=== PATIENT | male | born 1980 | race Caucasian/White ===

== ENCOUNTER 2020-02-24 07:37 | Outpatient (CLI) | payer OTHER, SELFPAY ==
--- NOTE | ~2020-02-24 | US_ITS ---
US right upper quadrant INDICATION: Gastroesophageal reflux disease. Esophagitis. PROCEDURE: Realtime right upper abdominal ultrasound. COMPARISON: Ultrasound dated 12/04/2013 FINDINGS: The pancreas is normal without focal mass or pancreatic ductal dilation. Liver echotexture is increased, consistent with fatty infiltration. There is normal directional flow in the portal ve in. The gallbladder is normal without stones, gallbladder wall thickening or pericholecystic fluid. Comm on bile duct measures 4 mm. No sonographic Olsen's sign. IMPRESSION: 1: Fatty infiltration of the liver. Reviewed, dictated and finalized at location A.
== END 2020-02-24 07:38 | disposition home or self-care (01) ==
LOC: ANHIMG 07:41
PROVIDERS: PCP Nurse Practitioner Family; Visit Provider Nurse Practitioner Family
DX: K21.9 Gastro-esophageal reflux disease without esophagitis (principal); K76.0 Fatty (change of) liver, not elsewhere classified
CPT/HCPCS: 76705

== ENCOUNTER 2020-06-05 01:35 | Outpatient (CLI) | payer OTHER, SELFPAY ==
[2020-06-05 17:56] LABS: SARS-CoV-2 RNA PCR Negative
== END 2020-06-05 01:36 | disposition home or self-care (01) ==
LOC: ANHCOVIDDT 01:35
PROVIDERS: PCP Nurse Practitioner Family; Visit Provider Internal Medicine Gastroenterology
DX: Z01.812 Encounter for preprocedural laboratory examination (principal); Z11.59 Encounter for screening for other viral diseases
CPT/HCPCS: 87635; C9803; U0003

== ENCOUNTER 2020-06-07 02:42 | Day surgery (SDC) | payer OTHER, SELFPAY ==
[2020-06-01 15:29] VITALS: BMI 31.1
[2020-06-07] MEDS: LACTATED RINGERS 1,000 ML 150 ML IV CONT (10:34)
[2020-06-07 10:44] VITALS: BP 107/63; PULSE 66; RESP 16; TEMP 36.6; O2SAT 98
--- NOTE | 2020-06-07 10:49 | WPDANESEPPF ---
Anes - Initial Pre Proc Eval Procedure: Operation Date: 06/07/20 11:00 Proposed Procedures p Esophagogastroduodenoscopy - Marcus Mae DO Date/Time: 06/07/20 10:49 Surgeon: Marcus Mae DO Pre Op Diagnosis: Gerd Patient Data Age: 40 Gender: M Height: 6 ft 2 in Weight: 111.4 kg Last Vital Signs Temp 97.9 F 06/07/20 10:44 Pulse 66 06/07/20 10:44 Resp 16 06/07/20 10:44 BP 107/63 06/07/20 10:44 Pulse Ox 98 06/07/20 10:44 Allergies Allergy/AdvReac Type Severity Reaction Status Date / Time Penicillins Allergy Severe TACHYCARDIA Verified 06/01/20 15:25 Sulfa (Sulfonamide Allergy Severe TACHYCARDIA Verified 06/01/20 15:25 Antibiotics) clarithromycin Allergy Unknown TACHYCARDIA Verified 06/01/20 15:25 doxycycline Allergy Unknown TACHYCARDIA Verified 06/01/20 15:25 Home Medications Medication Instructions Recorded Confirmed Type albuterol sulfate 1 puff INHALATION DAILY 06/01/20 06/07/20 History famotidine 40 mg PO BID 06/01/20 06/07/20 History mometasone-formoterol [Dulera] 1 puff INHALATION DAILY 06/01/20 06/07/20 History pantoprazole 40 mg PO BID 06/01/20 06/07/20 History Patient hx anesthesia problems: none Family hx anesthesia problems: none PMFSH Past Medical History Medical History (Updated 06/07/20 @ 10:49 by Palomo Gonzáles MD) GERD (gastroesophageal reflux disease) TAYLOR (obstructive sleep apnea) Social History Social History (Updated 10/10/19 @ 16:10 by VICKY Tabor) Alcohol intake: never Substance use: never Gender identity (if verbalized by the patient): Male Anes - Eval Final PreProcedure Day of Procedure 06/07/20 10:49 Patient weight: overweight Heart: regular rate and rhythm Lungs: clear to auscultation Airway: Mallampati scale class II Neurological: alert and oriented Last oral intake: >/= 8 hours ASA classification: II Emergent: no Anesthetic plan: proceed Anesthesia type and monitoring: general GIVS and standard monitoring Informed Consent: The patient's anesthetic plan and its attendant risks and benefits were discussed with the patient/family/POA. Questions were solicited and answers provided to the satisfaction of the patient/family/POA.
[2020-06-07] MEDS: BENZOCAINE (*SP) 60 ML SPRAY CAN (HURRICAINE) 1 SPRAY MUCOUS MEM (11:44)
[2020-06-07 11:55] VITALS: BP 100/62; PULSE 66; RESP 22; O2SAT 100
[2020-06-07 12:05] VITALS: BP 95/60; PULSE 59; RESP 18; O2SAT 97
[2020-06-07 12:15] VITALS: BP 103/67; PULSE 66; RESP 18; O2SAT 97
--- NOTE | 2020-07-12 07:21 | PM.IMHP ---
H&P: HPI History of Present Illness Date/Time: 07/12/20 07:21 Chief complaint: Gerd Narrative: Reason for visit EGD. This very pleasant gentleman is being evaluated at the request of the primary physician. Impression: The we have a gentleman that is complaining of a bad taste in his mouth. This may be sicker lying reflux disease. The patient is here for EGD. Note: This report was dictated from memory. This was done the best comprehension. Recommendation: EGD. History: Patient is being evaluated for a bad taste in his mouth. He is here for endoscopic evaluation to assess for lying reflux esophagitis. Nausea, vomiting hematemesis Were denied. Physical examination: General: very pleasant patient in no acute distress. HEENT: Head was normocephalic sclerae is clear mouth without masses neck was supple. Heart: Rate rhythm regular without S3 or S4. Lungs: CTA. Abdomen: Soft with no guarding or rigidity. Bowel sounds were active. Neurologic: Cranial nerves 2 through 12 intact. No focal defects. No clonus. Musculoskeletal system: Revealed no joint tenderness or swelling no muscle atrophy. Extremities: Reveal no significant edema. Skin: Warm and dry with normal turgor. Mental status: intact. Patient is alert and oriented. Review of Systems Review of Systems: All systems reviewed & are unremarkable except as noted in HPI and below PMFSH Past Medical History Medical History (Updated 06/07/20 @ 11:53 by Marcus Mae DO) Eosinophilic esophagitis GERD overlap. GERD (gastroesophageal reflux disease) TAYLOR (obstructive sleep apnea) Social History Social History (Updated 10/10/19 @ 16:10 by VICKY Tabor) Alcohol intake: never Substance use: never Gender identity (if verbalized by the patient): Male Meds Home Medications and Allergies Home Medications Medication Instructions Recorded Confirmed Type albuterol sulfate 1 puff INHALATION DAILY 06/01/20 06/07/20 History famotidine 40 mg PO BID 06/01/20 06/07/20 History mometasone-formoterol [Dulera] 1 puff INHALATION DAILY 06/01/20 06/07/20 History pantoprazole 40 mg PO BID 06/01/20 06/07/20 History Allergies Allergy/AdvReac Type Severity Reaction Status Date / Time Penicillins Allergy Severe TACHYCARDIA Verified 06/01/20 15:25 Sulfa (Sulfonamide Allergy Severe TACHYCARDIA Verified 06/01/20 15:25 Antibiotics) clarithromycin Allergy Unknown TACHYCARDIA Verified 06/01/20 15:25 doxycycline Allergy Unknown TACHYCARDIA Verified 06/01/20 15:25
== END 2020-06-07 12:34 | disposition home or self-care (01) ==
PROVIDERS: PCP Nurse Practitioner Family; Visit Provider Internal Medicine Gastroenterology
PROC: 0DJ08ZZ Inspection of Upper Intestinal Tract, Via Natural or Artificial Opening Endoscopic (ICD-10-PCS; CPT 43235; principal; 2020-06-07 11:00)
DX: K21.9 Gastro-esophageal reflux disease without esophagitis (principal); K29.80 Duodenitis without bleeding; G47.33 Obstructive sleep apnea (adult) (pediatric); Z86.010 Personal history of colon polyps; Z88.0 Allergy status to penicillin; Z88.2 Allergy status to sulfonamides; Z79.51 Long term (current) use of inhaled steroids; Z79.899 Other long term (current) drug therapy
CPT/HCPCS: 43239; 87081; 88305; J2704; J7120

== ENCOUNTER 2020-07-30 07:49 | Outpatient (CLI) | payer OTHER, SELFPAY ==
--- NOTE | ~2020-07-30 | NM_ITS ---
HEPATOBILIARY SCAN Procedure: Hepatobiliary scan performed following IV administration 4.8 mCi Tc 99m Choletec. At 60 m inutes 2.2 mcg CCK administered IV for evaluation of gallbladder ejection fraction. Indication:Right upper quadrant abdominal pain Comparison: Ultrasound dated 02/24/2020 and HIDA scan dated 05/09/2014 Findings: There is normal radiotracer uptake in the liver parenchyma with prompt excretion into the b iliary tract. Gallbladder visualized at 15 minutes. Small bowel visualized at 45 minutes. Normal g allbladder ejection fraction measures 85% (normal 10-90%, but most patients with gallbladder dysfunct ion have GBEF of less than 35%) Impression: 1: Normal hepatobiliary scan. Reviewed, dictated and finalized at location A. Impression: 1: Normal hepatobiliary scan.
== END 2020-07-30 07:50 | disposition home or self-care (01) ==
PROVIDERS: PCP Nurse Practitioner Family; Visit Provider Internal Medicine Gastroenterology
DX: R10.9 Unspecified abdominal pain (principal)
CPT/HCPCS: 78227; A9537; J2805

== ENCOUNTER 2020-08-07 01:05 | Outpatient (CLI) | payer OTHER, SELFPAY ==
[2020-08-08 13:05] LABS: SARS-CoV-2 RNA PCR Negative
== END 2020-08-07 01:06 | disposition home or self-care (01) ==
LOC: ANHCOVIDDT 01:06
PROVIDERS: PCP Nurse Practitioner Family; Visit Provider Internal Medicine Gastroenterology
DX: Z01.812 Encounter for preprocedural laboratory examination (principal); Z20.828 Contact with and (suspected) exposure to other viral communicable diseases
CPT/HCPCS: 87635; C9803; U0003

== ENCOUNTER 2020-08-09 00:42 | Day surgery (SDC) | payer OTHER, SELFPAY ==
[2020-08-01 14:27] VITALS: BMI 34.7
[2020-08-09] MEDS: LACTATED RINGERS 1,000 ML 150 ML IV CONT (06:41)
[2020-08-09 06:43] VITALS: BP 119/72; PULSE 75; RESP 16; TEMP 36.4; O2SAT 98; BMI 31.8
--- NOTE | 2020-08-09 07:21 | WPDANESEPPF ---
Anes - Initial Pre Proc Eval Procedure: Operation Date: 08/09/20 07:30 Proposed Procedures p Colonoscopy - Marcus Mae DO Date/Time: 08/09/20 07:21 Surgeon: Marcus Mae DO Pre Op Diagnosis: Diahrrhea, Hx of Colon Polyps Patient Data Age: 40 Gender: M Height: 6 ft 2 in Weight: 112.3 kg Last Vital Signs Temp 97.6 F 08/09/20 06:43 Pulse 75 08/09/20 06:43 Resp 16 08/09/20 06:43 BP 119/72 08/09/20 06:43 Pulse Ox 98 08/09/20 06:43 Allergies Allergy/AdvReac Type Severity Reaction Status Date / Time Penicillins Allergy Severe TACHYCARDIA Verified 08/09/20 06:42 Sulfa (Sulfonamide Allergy Severe TACHYCARDIA Verified 08/09/20 06:42 Antibiotics) clarithromycin Allergy Unknown TACHYCARDIA Verified 08/09/20 06:42 doxycycline Allergy Unknown TACHYCARDIA Verified 08/09/20 06:42 Home Medications Medication Instructions Recorded Confirmed Type albuterol sulfate 1 puff INHALATION QID 06/01/20 08/01/20 History mometasone-formoterol [Dulera] 1 puff INHALATION BID 06/01/20 08/09/20 History pantoprazole 40 mg PO BID 06/01/20 08/01/20 History Patient hx anesthesia problems: none Family hx anesthesia problems: none PMFSH Past Medical History Medical History (Updated 08/01/20 @ 14:35 by Peyton Juarez RN) Eosinophilic esophagitis GERD overlap. GERD (gastroesophageal reflux disease) TAYLOR (obstructive sleep apnea) Social History Social History (Updated 10/10/19 @ 16:10 by VICKY Tabor) Smoking status: Current some day smoker Alcohol intake: never Substance use: current Substance use type: marijuana Living arrangements: with family Gender identity (if verbalized by the patient): Male Sexual Orientation (if Verbalized by the Patient): Straight or Heterosexual Spiritual care concerns: No Anes - Eval Final PreProcedure Day of Procedure 08/09/20 07:21 Patient weight: obese Heart: regular rate and rhythm Lungs: clear to auscultation Airway: Mallampati scale class II Neurological: alert and oriented Last oral intake: >/= 8 hours ASA classification: III Emergent: no Anesthetic plan: proceed Anesthesia type and monitoring: general GIVS and standard monitoring Informed Consent: The patient's anesthetic plan and its attendant risks and benefits were discussed with the patient/family/POA. Questions were solicited and answers provided to the satisfaction of the patient/family/POA.
--- NOTE | 2020-08-09 07:29 | WPDHPUPDATE1 ---
History and Physical Update Update Date/Time: 08/09/20 07:29 History and Physical has been reviewed, including an updated exam of the patient. There are NO changes in the patient's condition. Risks, benefits, and alternatives have been discussed and questions answered. Patient agrees to proceed with procedure.
[2020-08-09 07:59] VITALS: BP 91/55; PULSE 63; RESP 21; O2SAT 96
[2020-08-09 08:09] VITALS: BP 108/59; PULSE 61; RESP 24; O2SAT 100
[2020-08-09 08:19] VITALS: BP 100/60; PULSE 59; RESP 25; O2SAT 100
== END 2020-08-09 08:35 | disposition home or self-care (01) ==
PROVIDERS: PCP Nurse Practitioner Family; Visit Provider Internal Medicine Gastroenterology
PROC: 0DJD8ZZ Inspection of Lower Intestinal Tract, Via Natural or Artificial Opening Endoscopic (ICD-10-PCS; CPT 45378; principal; 2020-08-09 07:30)
DX: R19.7 Diarrhea, unspecified (principal); Z86.010 Personal history of colon polyps; K64.8 Other hemorrhoids; K21.9 Gastro-esophageal reflux disease without esophagitis; G47.33 Obstructive sleep apnea (adult) (pediatric); F12.90 Cannabis use, unspecified, uncomplicated; E66.9 Obesity, unspecified; Z68.31 Body mass index [BMI] 31.0-31.9, adult
CPT/HCPCS: 45380; 88305; J2704; J7120

== ENCOUNTER → 2021-12-19 15:25 | Outpatient (CLI) | payer BC, SELFPAY ==
--- NOTE | ~2021-12-19 | XR_ITS ---
XR shoulder RT min 2V DATE: 12/19/2021 16:09 INDICATION: Bilateral shoulder pain TECHNIQUE: 4 views COMPARISON: None FINDINGS: No fracture, dislocation, periosteal reaction or bone destruction or abnormal soft tissue c alcification. IMPRESSION: Negative Reviewed, dictated and finalized at location A. DISTRIBUTION AND EMERGENCY CLERK IMPRESSION: Negative
--- NOTE | ~2021-12-19 | XR_ITS ---
XR shoulder LT min 2V DATE: 12/19/2021 16:09 INDICATION: Bilateral shoulder pain TECHNIQUE: 4 views COMPARISON: None FINDINGS: No fracture or dislocation, periosteal reaction or bone destruction or abnormal soft tissue calcification. IMPRESSION: Negative Reviewed, dictated and finalized at location A. NCING ANALYST IMPRESSION: Negative
== END ==
PROVIDERS: Visit Provider Nurse Practitioner Family
DX: M25.512 Pain in left shoulder (principal); M25.511 Pain in right shoulder
CPT/HCPCS: 73030

== ENCOUNTER 2024-08-01 08:59 | Emergency (ER) | payer OTHER, SELFPAY ==
--- NOTE | ~2024-08-01 | XR_ITS ---
EXAMINATION: XR ankle LT min 3V DATE: 08/01/2024 09:28 INDICATION: Left ankle injury and pain. TECHNIQUE: 4 views of left ankle were obtained. COMPARISON: None. FINDINGS: Bone alignment is normal. No fracture. Joint spaces are normal. There is an enthesophyte of posterior aspect of calcaneal tuberosity. There is ankle soft tissue swelling. IMPRESSION: 1. No fracture. Reviewed, dictated and finalized at location A. IMPRESSION: 1. No fracture.
[2024-08-01 09:09] VITALS: BP 126/83; PULSE 73; RESP 18; TEMP 36.5; O2SAT 98
[2024-08-01 09:12] VITALS: BP 126/83; PULSE 73; RESP 18; TEMP 36.5; O2SAT 98
--- NOTE | 2024-08-01 09:34 | ED.EXTPRO ---
HPI - Extremity Problem General Chief complaint: Extremity Problem,Nontraumatic Stated complaint: LT Ankle Pain Time Seen by Provider: 08/01/24 09:20 Source: patient and RN notes reviewed Mode of arrival: ambulatory Limitations: no limitations History of Present Illness HPI Narrative: Patient presents today complaining of a left ankle injury. States he twisted it 3 days ago but has been ambulatory since that time with increased pain. Denies increased numbness or tingling, but does have this due to some degree related to his psoriatic arthritis. Currently rates his pain 2/10, which increases with weight-bearing. He did treat with 1 dose of Tylenol a few days ago, but none since then. Related Data Home Medications Medication Instructions Recorded Confirmed albuterol 90 mcg-budesonide 80 inh inhalation 08/01/24 08/01/24 mcg/actuation HFA aerosol inhaler (Airsupra) apremilast 30 mg tablet (Otezla) mg PO 08/01/24 atorvastatin 20 mg tablet mg 08/01/24 prednisone 20 mg tablet mg 08/01/24 sulfamethoxazole 800 tablet 08/01/24 mg-trimethoprim 160 mg tablet Allergies Allergy/AdvReac Type Severity Reaction Status Date / Time No Known Allergies Allergy Verified 08/01/24 09:40 Review of Systems Review of Systems: CONSTITUTIONAL: Denies body aches, fever, chills, or sweats. EYES: Denies visual changes, redness, or discharge. ENT: Denies rhinorrhea, congestion, sore throat, or otalgia. CARDIOVASCULAR: Denies chest pain, palpitations, or edema. RESPIRATORY: Denies cough or dyspnea. GASTROINTESTINAL: Denies abdominal pain, nausea, vomiting, or diarrhea. GENITOURINARY: Denies dysuria or hematuria. SKIN: Denies rash, itching, or wounds. MUSCULOSKELETAL: Denies back pain, or myalgia.+ left ankle injury NEUROLOGIC: Denies headache, or weakness. PSYCH: Denies depression or anxiety. [facility] Past Medical History Medical History (Updated 08/01/24 @ 09:40 by Milena Richter, VICKY, CRISS) Eosinophilic esophagitis GERD overlap. GERD (gastroesophageal reflux disease) TAYLOR (obstructive sleep apnea) Psoriatic arthritis Social History Social History Smoking status: Current some day smoker Alcohol intake: never Substance use: current Substance use type: marijuana Living arrangements: with family Occupation/Education: occupation Gender identity (if verbalized by the patient): Male Sexual Orientation (if Verbalized by the Patient): Straight or Heterosexual Spiritual care concerns: No Comments At time of signature, I have reviewed and agree with nursing past medical, surgical, social and family history unless otherwise noted. Please see nursing chart for further information. There is no relevant family history pertinent to the presenting complaint Exam Narrative: GENERAL: Well-appearing, well-nourished, and in no acute distress. HEAD: Normocephalic, atraumatic. EYES: EOMI. No redness or drainage. Conjunctivae normal. ENT: Mucous membranes pink and moist. NECK: Normal AROM. CHEST: No respiratory distress. EXTREMITIES: Left ankle: Mild edema laterally with mild tenderness to palpation. No tenderness or edema anteriorly, posteriorly, or medially. Distal sensation intact. Capillary refill normal. Pedal pulse is strong. P ROM elicits mild pain in all directions. SKIN: Warm, dry, no rash. Capillary refill normal. Normal skin turgor. NEURO: No focal deficits. Alert and oriented x3. Gait steady. PSYCH: Normal affect. No signs of depression or anxiety. Course Course Level of Care: Express Care Visit Vital Signs Vital signs: Vital Signs Temperature 97.7 F 08/01/24 09:09 Pulse Rate 73 08/01/24 09:09 Respiratory Rate 18 08/01/24 09:09 Blood Pressure 126/83 08/01/24 09:09 Pulse Oximetry 98 08/01/24 09:09 Oxygen Delivery Room Air 08/01/24 09:09 Temperature 97.7 F 08/01/24 09:12 Pulse Rate 73
== END 2024-08-01 09:46 | disposition home or self-care (01) ==
PROVIDERS: Emergency Provider Nurse Practitioner
DX: S93.402A Sprain of unspecified ligament of left ankle, initial encounter (principal); X50.9XXA Other and unspecified overexertion or strenuous movements or postures, initial encounter; K20.0 Eosinophilic esophagitis; K21.9 Gastro-esophageal reflux disease without esophagitis; L40.50 Arthropathic psoriasis, unspecified; F12.90 Cannabis use, unspecified, uncomplicated
CPT/HCPCS: 73610; 99213; G0463

== ENCOUNTER 2024-10-10 13:21 | Outpatient (CLI) | payer OTHER, SELFPAY ==
--- NOTE | ~2024-10-10 | XR_ITS ---
Clinical Indication: Wheezing PA and lateral views of the chest: Comparison: 02/15/2018 Findings: The lungs are clear, without evidence of focal consolidation or pleural effusion. Cardiome diastinal silhouette is within normal limits. Bones and soft tissues are unremarkable. Impression: Normal chest. Reviewed, dictated and finalized at [facility]. Y LEVEL RECRUITER Impression: Normal chest.
== END 2024-10-10 13:22 | disposition home or self-care (01) ==
DX: R06.2 Wheezing (principal)
CPT/HCPCS: 71046

== ENCOUNTER 2025-04-25 18:49 | Emergency (ER) | payer OTHER, SELFPAY ==
--- NOTE | 2025-04-25 18:52 | ED_ITS ---
HPI - URI/Sore Throat General Chief Complaint: Upper Respiratory Infection Stated Complaint: Trouble Breathing Source: patient and RN notes reviewed Mode of arrival: ambulatory Limitations: no limitations History of Present Illness HPI Narrative: Patient is a 44-year-old male who presents to the [facility] with complaints of possible asthma exacerbation. Patient states that he has had a frequent nonproductive cough and wheezing that started on Thursday. He states that he has been taking his albuterol at home with some relief. He also started a course of azithromycin on Thursday with the symptoms started. He does report some mild nasal congestion along with a cough. Denies recent fevers. His respirations are unlabored with no retractions. He denies chest pain at this time. Patient states that he has similar symptoms couple times throughout the year. He states that usually he is able to get into his primary care physician and get a steroid shot which improves his symptoms significantly. He states that he was unable to get into his primary care physician today. Related Data Home Medications ?Medication ?Instructions ?Recorded ?Confirmed ?Last Taken ?Type albuterol 90 mcg-budesonide 80 inh inhalation 08/01/24 08/01/24 Unknown History mcg/actuation HFA aerosol inhaler (Airsupra) apremilast 30 mg tablet (Otezla) mg PO 08/01/24 Unknown History atorvastatin 20 mg tablet mg 08/01/24 Unknown History Allergies Allergy/AdvReac Type Severity Reaction Status Date / Time No Known Allergies Allergy Verified 04/25/25 18:51 Review of Systems Review of Systems: CONSTITUTIONAL: Denies fever, chills, or sweats. EYES: Denies visual changes, redness, or discharge. ENT: Denies otalgia and sore throat. Reports congestion CARDIOVASCULAR: Denies chest pain, palpitations, or edema. RESPIRATORY: Reports cough and dyspnea. Reports wheezing. GASTROINTESTINAL: Denies abdominal pain, nausea, vomiting, or diarrhea. GENITOURINARY: Denies dysuria or hematuria. SKIN: Denies rash or itching. MUSCULOSKELETAL: Denies back pain, joint pain, or myalgia. NEUROLOGIC: Denies headache, numbness, or weakness. Pertinent positives per HPI. [facility] Past Medical History Medical History Psoriatic arthritis Eosinophilic esophagitis GERD overlap. GERD (gastroesophageal reflux disease) TAYLOR (obstructive sleep apnea) Social History Social History Smoking status: Current some day smoker Alcohol intake: never Substance use: current Substance use type: marijuana Living arrangements: with family Occupation/Education: occupation Gender identity (if verbalized by the patient): Male Sexual Orientation (if Verbalized by the Patient): Straight or Heterosexual Spiritual care concerns: No Comments At the time of my signature, I reviewed and agree with the nursing past medical, surgical, social, and family history. There is no relevant family history pertinent to the patient complaint. Exam Narrative: GENERAL: This is a well-nourished, well-developed patient, in no apparent distress. HEAD: normocephalic, atraumatic. EYES: Sclera clear/white. Vision is grossly intact. EARS: External ears normal. Hearing grossly intact. NOSE: External nose normal with no obvious nasal discharge, nares without redness, no rhinorrhea. THROAT: Mucous membranes moist, posterior pharynx clear. NECK: Neck supple, non-tender without lymphadenopathy, masses or thyromegaly. CARDIOVASCULAR: Regular rate and rhythm without murmurs, gallops, or rubs. RESPIRATORY: Very mild diffuse wheezes bilaterally. GASTROINTESTINAL: Abdomen soft, non-tender, nondistended. Bowel sounds are active. No hepato-splenomegaly, or palpable masses. No guarding. SKIN: warm, intact with no suspicious lesions or rash, good texture and turgor. NEURO: awake, alert, and oriented to person, place and time. There were no obvious focal neurologic abnormalities. Course Course Level of Care: Express Care Visit Vital Signs Vital signs: Vital Signs Temperature 98.4 F 04/25/25 18:54 Pulse Rate 101 H 04/25/25 18:54 Respiratory Rate 20 04/25/25 18:54 Blood Pressure 131/85 04/25/25 18:54 Pulse Oximetry 97 04/25/25 18:54 Oxygen Delivery Room Air 04/25/25 18:54 Temperature 98.4 F 04/25/25 18:54 Pulse Rate 101 H 04/25/25 18:54 Respiratory Rate 20 04/25/25 18:54 Blood Pressure 131/85 04/25/25 18:54 Pulse Oximetry 97 04/25/25 18:54 Oxygen Delivery Room Air 04/25/25 18:54 Reviewed MDM - URI/Sore Throat MDM Narrative Medical decision making narrative: Take steroids as directed. May use the inhaler every 4-6 hours as needed for coughing. Increase fluids at home. Avoid any and all smoke. May use a humidifier in the bedroom. Increase your Vitamin C. Follow-up with personal physician in 2-5 days. Differential Diagnosis Differential diagnosis: Likely upper respiratory infection, viral infection, bronchitis and other ( asthma exacerbation) Critical Care Time Critical Care Time Critical Care Time: No Discharge Plan Discharge Clinical Impression: Asthma exacerbation Qualifiers: Asthma severity: mild Asthma persistence: intermittent Qualified Code(s): J45.21 - Mild intermittent asthma with (acute) exacerbation Patient Disposition: Home Condition: Stable Instructions: Asthma (ED), Wheezing (ED) Additional Instructions: Take steroids as directed. May use the inhaler every 4-6 hours as needed for coughing. Increase fluids at home. Avoid any and all smoke. May use a humidifier in the bedroom. Increase your Vitamin C. Follow-up with personal physician in 2-5 days. Patient Language: Kiswahili Prescriptions: New prednisone 50 mg tablet 50 mg PO DAILY 5 Days Qty: 5 0RF No Action Airsupra 90-80 mcg/actuation HFA aerosol inhaler INHALATION atorvastatin 20 mg tablet Otezla 30 mg tablet PO Follow-up/Referrals: Arnold,Pilar Ochoa, SWING RIDE OPERATOR [Primary Care Provider] - Time of Disposition: 19:03
[2025-04-25 18:54] VITALS: BP 131/85; PULSE 101; RESP 20; TEMP 36.9; O2SAT 97
[2025-04-25] MEDS: methylPREDNISolone SOD SUCC 125 MG VIAL IM (19:04)
== END 2025-04-25 19:07 | disposition home or self-care (01) ==
PROVIDERS: Emergency Provider Nurse Practitioner
DX: J45.21 Mild intermittent asthma with (acute) exacerbation (principal); F17.200 Nicotine dependence, unspecified, uncomplicated; F12.90 Cannabis use, unspecified, uncomplicated; L40.50 Arthropathic psoriasis, unspecified; K20.0 Eosinophilic esophagitis; K21.9 Gastro-esophageal reflux disease without esophagitis
CPT/HCPCS: 96372; 99213; G0463; J2919

== ENCOUNTER 2025-05-01 16:23 | Emergency (ER) | payer OTHER, SELFPAY ==
--- NOTE | ~2025-05-01 | XR_ITS ---
EXAMINATION: XR chest 2V DATE: 05/01/2025 17:00 INDICATION: Cough and congestion TECHNIQUE: PA and lateral views of the chest were obtained. COMPARISON: Chest radiograph dated 10/10/2024 FINDINGS: The lungs remain clear with no focal airspace opacities, pulmonary edema, pleural effusion or pneumot horax. The cardiomediastinal silhouette is normal. Mild thoracic spondylosis with minimal to mild chr onic appearing anterior wedging at a few levels at the thoracolumbar junction. IMPRESSION: 1. No acute cardiopulmonary disease. Reviewed, dictated and finalized at location A.
--- NOTE | 2025-05-01 16:28 | ED_ITS ---
HPI - URI/Sore Throat General Chief Complaint: Upper Respiratory Infection Stated Complaint: Trouble Breathing/Thrush Source: patient and RN notes reviewed Mode of arrival: ambulatory Limitations: no limitations History of Present Illness HPI Narrative: Patient is a 44-year-old male who presents to the [facility] with complaints of worsening cough and wheezing. Patient states that he has had a frequent nonproductive cough and wheezing that started over a week ago. He states that he has been taking his albuterol at home with some relief. He also started a course of azithromycin last week when the symptoms started. He does report some mild nasal congestion along with a cough. Denies recent fevers. He denies chest pain at this time. He was seen at this facility last week, and was prescribed prednisone for asthma exacerbation. Patient states that he finished the 5 day course of steroids; however, he believes he may have developed thrush. He reports white film to his tongue and pharynx. Patient also reports new left ear pain. Denies ear drainage or difficulty hearing. Denies recent fever. Related Data Home Medications ?Medication ?Instructions ?Recorded ?Confirmed ?Last Taken ?Type albuterol 90 mcg-budesonide 80 inh inhalation 08/01/24 08/01/24 Unknown History mcg/actuation HFA aerosol inhaler (Airsupra) apremilast 30 mg tablet (Otezla) mg PO 08/01/24 Unknown History atorvastatin 20 mg tablet mg 08/01/24 Unknown History Allergies Allergy/AdvReac Type Severity Reaction Status Date / Time No Known Allergies Allergy Verified 05/01/25 16:55 Review of Systems Review of Systems: CONSTITUTIONAL: Denies fever, chills, or sweats. EYES: Denies visual changes, redness, or discharge. ENT: Reports left ear pain and sore throat. CARDIOVASCULAR: Denies chest pain, palpitations, or edema. RESPIRATORY: Reports cough and dyspnea. GASTROINTESTINAL: Denies abdominal pain, nausea, vomiting, or diarrhea. GENITOURINARY: Denies dysuria or hematuria. SKIN: Denies rash or itching. MUSCULOSKELETAL: Denies back pain, joint pain, or myalgia. NEUROLOGIC: Denies headache, numbness, or weakness. Pertinent positives per HPI. FOR[facility]LY [facility] Past Medical History Medical History Psoriatic arthritis Eosinophilic esophagitis GERD overlap. GERD (gastroesophageal reflux disease) TAYLOR (obstructive sleep apnea) Social History Social History Smoking status: Current some day smoker Alcohol intake: never Substance use: current Substance use type: marijuana Living arrangements: with family Occupation/Education: occupation Gender identity (if verbalized by the patient): Male Sexual Orientation (if Verbalized by the Patient): Straight or Heterosexual Spiritual care concerns: No Comments At the time of my signature, I reviewed and agree with the nursing past medical, surgical, social, and family history. There is no relevant family history pertinent to the patient complaint. Exam Narrative: GENERAL: This is a well-nourished, well-developed patient, in no apparent distress. HEAD: normocephalic, atraumatic. EYES: Sclera clear/white. Vision is grossly intact. EARS: External ears normal. Right TM normal without perforation. Left TM erythematous. Hearing grossly intact. NOSE: External nose normal with no obvious nasal discharge, nares without redness, no rhinorrhea. THROAT: Mucous membranes moist, white film consistent with thrush noted to mouth and pharynx. NECK: Neck supple, non-tender without lymphadenopathy, masses or thyromegaly. CARDIOVASCULAR: Regular rate and rhythm without murmurs, gallops, or rubs. RESPIRATORY: Bilateral expiratory wheezes present. GASTROINTESTINAL: Abdomen soft, non-tender, nondistended. Bowel sounds are active. No hepato-splenomegaly, or palpable masses. No guarding. SKIN: warm, intact with no suspicious lesions or rash, good texture and turgor. NEURO: awake, alert, and oriented to person, place and time. There were no obvio us focal neurologic abnormalities. Course Course Level of Care: Express Care Visit Vital Signs Vital signs: Vital Signs Temperature 98.1 F 05/01/25 16:32 Pulse Rate 94 05/01/25 16:32 Respiratory Rate 20 05/01/25 16:32 Blood Pressure 118/75 05/01/25 16:32 Pulse Oximetry 97 05/01/25 16:32 Oxygen Delivery Room Air 05/01/25 16:32 Temperature 98.1 F 05/01/25 16:32 Pulse Rate 94 05/01/25 16:32 Respiratory Rate 20 05/01/25 16:32 Blood Pressure 118/75 05/01/25 16:32 Pulse Oximetry 97 05/01/25 16:32 Oxygen Delivery Room Air 05/01/25 16:32 Reviewed MDM - URI/Sore Throat MDM Narrative Medical decision making narrative: Take antibiotics as directed. May given ibuprofen and/or Tylenol as needed for pain and/or fever. Follow up with primary care provider in 7-10 days to have ear rechecked. Get plenty of fluids and rest. Take steroids as directed. Use your inhaler every 4-6 hours if needed. Follow up with your MD in 2-5 days. Go to the ER with any new or worsening symptoms. Patient had significant improvement of symptoms after DuoNeb treatment. He states that he does have a nebulizer at home but no solution. Will prescribe albuterol nebulizer solution upon discharge. Patient will be treated for the oral thrush with nystatin. Left otitis media will be treated with Augmentin. Differential Diagnosis Differential diagnosis: Likely upper respiratory infection, otitis media, viral infection, bronchitis and other (thrush, pneumonia) Imaging Data Attestation: I personally reviewed and interpreted this imaging study as follows: Radiologist's impression: Close Chest X-Ray (Signed) GabrielaDc - 05/01/25 Launch?[facility] [address] [place] [address] XRay Report Signed Patient: Wyatt Carrasco : 1980 MR#: [id number] Age: 44 Acct:[id number] Loc: [facility] ADM Date: 05/01/25Attending Dr: Ordering Physician: Meenu Loyola APRN Date of Service: 05/01/25 Procedure(s): XR chest 2V Accession Number(s): [id number] cc: Meenu Loyola APRN; GRADALL OPERATOR PHYSICIAN~ EXAMINATION: XR chest 2V DATE: 05/01/2025 17:00 INDICATION: Cough and congestion TECHNIQUE: PA and lateral views of the chest were obtained. COMPARISON: Chest radiograph dated 10/10/2024 FINDINGS: The lungs remain clear with no focal airspace opacities, pulmonary edema, pleural effusion or pneumothorax. The cardiomediastinal silhouette is normal. Mild thoracic spondylosis with minimal to mild chronic appearing anterior wedging at a few levels at the thoracolumbar junction. IMPRESSION: 1. No acute cardiopulmonary disease. Reviewed, dictated and finalized at location A. Please be advised this is a medical document. It is intended for [id number] communication. It is written in medical language and may contain unfamiliar abbreviations or verbiage. Medical documents are intended to carry relevant information, facts as evident, and the clinical opinion of the practitioner at the time of the encounter. This report may have been done utilizing a voice recognition system. Attempts have been made to correct errors. However, there may be uncorrected grammatical, spelling, and recognition errors present. The file time of this note does not necessarily represent the time of service. Dictated By: Dc Ochoa MD 05/01/25 1716 Signed By: <Electronically signed by Dc Ochoa MD in OV> 05/01/25 1717 Critical Care Time Critical Care Time Critical Care Time: No Discharge Plan Discharge Clinical Impression: Oral thrush, Acute left otitis media Asthma exacerbation Qualifiers: Asthma severity: mild Asthma persistence: intermittent Qualified Code(s): J45.21 - Mild intermittent asthma with (acute) exacerbation Patient Disposition: Home Condition: Stable Instructions: Antibiotic Form, Oral Candidiasis (ED), Ear Infection (ED) Additional Instructions: Take antibiotics as directed. May given ibuprofen and/or Tylenol as needed for pain and/or fever. Follow up with primary care provider in 7-10 days to have ear rechecked. Get plenty of fluids and rest. Take steroids as directed. Use your inhaler every 4-6 hours if needed. Follow up with your MD in 2-5 days. Go to the ER with any new or worsening symptoms. Patient Language: Wolof Prescriptions: New amoxicillin-pot clavulanate 875-125 mg tablet 1 tablet PO Q12H 10 Days Qty: 20 0RF nystatin 100,000 unit/mL suspension 5 ml PO QID 7 Days Qty: 140 0RF Rx Instructions: swish and swallow albuterol sulfate 2.5 mg /3 mL (0.083 %) solution for nebulization 2.5 mg inhalation Q4H PRN (Reason: shortness of breath or wheezing) Qty: 90 0RF No Action Airsupra 90-80 mcg/actuation HFA aerosol inhaler INHALATION atorvastatin 20 mg tablet Otezla 30 mg tablet PO prednisone 50 mg tablet 50 mg PO DAILY 5 Days Qty: 5 0RF Follow-up/Referrals: PHYSICIAN,GRADALL OPERATOR [Primary Care Provider] - Time of Disposition: 17:24
[2025-05-01 16:32] VITALS: BP 118/75; PULSE 94; RESP 20; TEMP 36.7; O2SAT 97
[2025-05-01] MEDS: IPRATROPIUM 0.5 MG/ALBUTEROL SULFATE 2.5 MG AMPUL.NEB 3 ML INHALATION (17:04)
[2025-05-01] MEDS: dexAMETHasone SOD PHOS INJ 10 MG/ML 1 ML VIAL IM (17:04)
== END 2025-05-01 17:30 | disposition home or self-care (01) ==
PROVIDERS: Emergency Provider Nurse Practitioner
DX: B37.0 Candidal stomatitis (principal); H66.92 Otitis media, unspecified, left ear; J45.21 Mild intermittent asthma with (acute) exacerbation
CPT/HCPCS: 71046; 96372; 99213; G0463; J1100

== ENCOUNTER 2025-06-04 15:44 | Emergency (ER) | payer OTHER, SELFPAY ==
--- NOTE | 2025-06-04 15:45 | ED_ITS ---
HPI - Skin/Abscess/Foreign Bdy General Chief complaint: Skin/Abscess/Foreign Body Stated complaint: poison mely Time Seen by Provider: 06/04/25 15:45 Source: patient Mode of arrival: ambulatory Limitations: no limitations History of Present Illness HPI narrative: Patient is a 45-year-old male who presents with poison mely rash that started 5 days ago and since spread all over body. Patient has been taking Benadryl and Zyrtec and using [id number] anti-itch cream with no relief. Denies any fever, chills, nausea, vomiting, diarrhea, shortness of breath Related Data Home Medications ?Medication ?Instructions ?Recorded ?Confirmed ?Last Taken ?Type albuterol 90 mcg-budesonide 80 inh inhalation 08/01/24 08/01/24 Unknown History mcg/actuation HFA aerosol inhaler (Airsupra) apremilast 30 mg tablet (Otezla) mg PO 08/01/24 Unknown History atorvastatin 20 mg tablet mg 08/01/24 Unknown History Allergies Allergy/AdvReac Type Severity Reaction Status Date / Time No Known Allergies Allergy Verified 06/04/25 15:46 Review of Systems Review of Systems: All systems reviewed & are unremarkable except as noted in HPI and below Constitutional: Constitutional: Denies body ache(s), Denies chills, Denies fatigue, Denies fever(s), Denies headache(s), Denies malaise and Denies weakness Eyes: Eyes: Denies blurry vision, Denies irritation and Denies loss of vision ENT: Denies otalgia, Denies headache(s), Denies nasal discharge, Denies sinus pain and Denies sore throat Cardiovascular: Cardiovascular: Denies chest pain, Denies irregular heart rhythm and Denies dyspnea Respiratory: Respiratory: Denies dyspnea Gastrointestinal: Gastrointestinal: Denies abdominal pain, Denies melena, Denies hematochezia, Denies diarrhea, Denies nausea and Denies vomiting Musculoskeletal: Musculoskeletal: Denies back pain, Denies myalgias and Denies arthralgias Integumentary/Breasts: Skin/Breast: Reports pruritus and Reports rash Neurologic: Denies headache(s), Denies loss of vision and Denies weakness Psychiatric: Psychiatric: Reports no additional psychiatric complaints Endocrine: Endocrine: Denies fatigue PMFSH Past Medical History Medical History Psoriatic arthritis Eosinophilic esophagitis GERD overlap. GERD (gastroesophageal reflux disease) TAYLOR (obstructive sleep apnea) Social History Social History Smoking status: Current some day smoker Alcohol intake: never Substance use: current Substance use type: marijuana Living arrangements: with family Occupation/Education: occupation Gender identity (if verbalized by the patient): Male Sexual Orientation (if Verbalized by the Patient): Straight or Heterosexual Spiritual care concerns: No Comments At time of signature, agree with nursing past medical, surgical, social and family history. There is no relevant family history pertinent to the presenting complaint. Exam Const: General: cooperative, healthy appearing, comfortable, no acute distress and well nourished Nutritional Appearance: well nourished Orientation/consciousness: patient oriented x3 Limitations: no limitations HENMT: Head: normal to inspection, normocephalic and atraumatic Ears: hearing grossly normal bilaterally and external ears normal Face/Nose/Sinus: Normal external nose present, normal facial exam and face symmetric Face and sinus: normal facial exam and face symmetric Mouth: Yes lip normal Eyes: General: appearance normal, both eyes and all related structures Alignment and Position: alignment normal and position normal Periorbital: periorbital findings normal Eyelids: eyelids normal Pupils: Equal, round a nd reactive pupils present EOM: EOMs intact bilaterally Neck: Neck: normal visual inspection, full ROM and supple Chest: Chest palpation & inspection: normal inspection of the chest Resp: Effort & Inspection: normal respiratory effort and able to speak in complete sentences Auscultation: clear to auscultation bilaterally Cardio: Rate: regular rate Rhythm: regular rhythm Heart sounds: S1 normal heart sound present and S2 normal heart sound present GI: Inspection: normal to inspection Skin: General skin exam: normal color Rashes: rashes noted (The lateral arms, legs and trunk) vesicles diffuse multiple locations size (0.5 cm), arrangement grouped, borders sharp and irregular, color with an erythematous base and surface waxy and wet Neuro: General: patient oriented x3 and moves all extremities Cranial nerves: Yes Equal, round and reactive pupils present Speech: normal speech Gait exam (Neuro): Normal gait present Extrem: General: normal to inspection, full ROM and no edema Psych: Appearance: grossly normal and well kempt Mental Status: mental status grossly normal Speech and movement: Normal speech and movement present Affect: normal affect Attitude: cooperative Thought process: Normal thought process present Course Course Emergency Course: Patient is aware of diagnosis, understands and agrees to treatment plan. Anticipatory guidance given. Patient agrees to follow-up as directed and is aware of reasons to seek care at the emergency department. Portions of this record may have been created with voice recognition software Level of Care: Express Care Visit Vital Signs Vital signs: Reviewed MDM - Skin/Abscess/Foreign Bdy MDM Narrative Medical decision making narrative: Discussed the risks of repeat steroids so close in succession. However based on exam benefits outweighed risks. Will prescribe long prednisone taper. Pt well hydrated appearing, in no respiratory distress, hemodynamically stable. Recommend supportive care. The patient is stable at time of discharge the clinical impression was discussed and the patient was given the opportunity to ask questions, which were addressed as completely as possible given the information available at present. Anticipatory guidance and return to care precautions were discussed and the importance of primary care follow-up was stressed and encouraged. The patient voiced understanding of the plan, indications to return, and the need for follow-up. Exam findings show no acute concerns or changes Patient is appropriate for outpatient treatment and follow-up. Differential Diagnosis Differential diagnosis: Likely urticaria, allergic reaction to drug, cellulitis, insect bites and contact dermatitis (Poison mely) Medical Records Attestation: I reviewed the patient's medical records. Discharge Plan Discharge Clinical Impression: Poison mely dermatitis Patient Disposition: Home Condition: Stable Instructions: Poison Mely (ED) Additional Instructions: Take steroids in the morning with food Prevention is always better than treatment. Learn to identify poison mely, oak, and sumac and avoid it. Wear long sleeves, long pants, shoes, and socks. If you touched the plant, try to keep your hands away from your eyes, mouth, and face. Wash the skin thoroughly with soap and cool water as soon as possible. Scrub under the fingernails with a brush to prevent spreading of the resin to other parts of the body by touching or scratching. Remember to wash any clothing with soap and hot water as the resin can persist for many months and cause further dermatitis. You should NOT use antihistamine creams or lotions, anesthetic creams containing benzocaine, or antibiotic creams containing neomycin or bacitracin to the skin. These creams or ointments could make the rash worse. For some people, adding oatmeal to a bath, applying cool wet compresses, and applying calamine lotion may help to relieve itching. Once the blisters begin weeping fluid, astringents containing aluminum acetate (Burow's solution) and [place] may help to relieve the rash. IF symptoms get worse to follow up with your primary care provider or seek ER visit if you developing difficulty breathing, weakness, dizziness. Patient Language: [place] Prescriptions: New prednisone 10 mg tablet See Rx Instructions .ROUTE .COMPLEX Qty: 35 0RF Rx Instructions: 40 mg daily for 5 days, 20 mg daily for 5 days, 10 mg daily for 5 days No Action Airsupra 90-80 mcg/actuation HFA aerosol inhaler INHALATION atorvastatin 20 mg tablet Otezla 30 mg tablet PO albuterol sulfate 2.5 mg /3 mL (0.083 %) solution for nebulization 2.5 mg inhalation Q4H PRN (Reason: shortness of breath or wheezing) Qty: 90 0RF Follow-up/Referrals: Arnold,Pilar Ochoa, PROCESS PROJECT ENGINEER [Primary Care Provider] - 3 Days Time of Disposition: 15:57
--- OUTSIDE RECORDS SUMMARY | 2025-06-04 15:46 | XMS_ITS | Clinical Summary ---
Author Organization [facility] [address] Address [address] [place] [address] Care Team Providers Care Computer Network And Systems Engineer Name Role Phone No, Physician Primary Care Provider [phone] Allergies Active Allergy Reactions Criticality Noted Date Comments Penicillins Sulfa (Sulfonamide Antibiotics) Medications famotidine (PEPCID) 40 mg tablet famotidine 40 mg tablet TK 1 T PO QD Active pantoprazole DR (PROTONIX) 40 mg EC tablet pantoprazole 40 mg tablet,delayed release TK 1 T PO QD Active Active Problems Problem Noted Date Diagnosed Date Nausea 03/30/2020 Assessment & Plan (03/30/2020 11:16 AM CDT): Years of awakening with sour taste in mouth and often then dry heaves. No abd pain no change in bowel habits no systenmic sx/signs. No prior evaluation. On ppi in the morning and H2RA dat the evening. No Gerd sx and no dys/odynophagia. Offered endo eval but I really cannot find sx to justify invsive procedures. reasured him and return prn. Surgical History Surgery Date Site/Laterality Comments COLONOSCOPY 11/09/2014 - 11/08/2015 UPPER GASTROINTESTINAL ENDOSCOPY 11/09/2014 - 11/08/2015 Medical History Medical History Date Comments Back pain Asthma Social History Tobacco Use Types Packs/Day Years Used Date Smoking Tobacco: Some Days Smokeless Tobacco: Current Tobacco Cessation:Ready to Q uit: Not Asked; Counseling Given: Not Answered Comments:ilene for pain Alcohol Use Standard Drinks/Week Comments Not Currently 0 (1 standard drink = 0.6 oz pur e alcohol) PHQ-2 Answer Date Recorded PHQ-2 Total Score (If total score is 3 or more points, staff should administer the PHQ-9) 0 03/30/2020 Personal Safety Answer Date Recorded Getting School Help Needed Not on file 10/31 Sex and Gender Information Value Date Recorded Sex Assigned at Not on file Legal Sex Male 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 Gender Identity Not on file Sexual Orientation Not on file Obstetrics History Last Filed Vital Signs Vital Sign Reading Time Taken Comments Blood Pressure 122/79 08/09/2024 7:47 AM CDT Pulse 78 08/09/2024 7:47 AM CDT Temperature 36.4 C (97.5 F) 08/09/2024 7:47 AM CDT Respiratory Rate 16 03/30/2020 10:57 AM CDT Oxygen Saturation 94% 08/09/2024 7:47 AM CDT Inhaled Oxygen Concentration - - Weight 121.6 kg (268 lb) 08/09/2024 7:47 AM CDT Height 188 cm (6' 2) 08/09/2024 7:47 AM CDT Body Mass Index 34.41 08/09/2024 7:47 AM CDT Plan of Treatment Health Maintenance Due Date Last Done Comments Varicella Vaccines (1 of 2 - 13+ 2-dose series) 1995 Regular Well Visit/Exam 18-64 2000 Pneumococcal vaccine <65 (1 of 2 - PCV) 2001 HPV Vaccines (1 - 3-dose SCD M series) 2009 Depression Screening 03/30/2021 03/30/2020, 03/30/20 20 Influenza Vaccine (#1) 2025 0, 08/17/2019, 08/11/2018, Additional history exists DTaP/Tdap/Td Vaccine (3 - Td or Tdap) 06/26/2027 06/26/2017, 06/25/2017 Hepatitis B Screening Completed 08/09/2024 , 02/17/2008, 01/17/2008 Hepatitis C Screening Completed 08/09/2024 Procedures Procedure Name Priority Date/Time Associated Diagnosis Comments HEPATITIS C ANTIBODY Routine 08/09/2024 10:00 AM CDT Psoriatic arthritis (HCC) from Last 3 Months or Most Recently Relevant to Health Maintenance Results * Hepatitis C antibody Blood (08/09/2024 10:00 AM CDT) Hep C Ab Nonreactive Nonreactive Comment: Interpretive Data Nonreactive: Antibodies to HCV not detected. Does NOT exclude the possibility of recent exposure to HCV. Equivocal: Equivocal for HCV antibodies. Supplemental molecular testing will be automatically performed to determine infection status in accordance with current CDC screening recommendations. Reactive: Positive for HCV antibodies. This may represent current or past HCV infection. Supplemental molecular testing will be automatically performed to determine current infection status in accordance with current CDC screening recommendations. Interpretive data was last revised on 2020. Blood 08/09/2024 10:0 0 AM CDT 08/09/2024 5:05 PM CDT Minda Perla MD LAB MICROBIOLOGY - GENERAL ORDERABLES Final Result Performing Organization Address City/State/ZIP Co sc Phone Number [facility] [phone] Department [place] [address] from Last 3 Months or Most Recently Relevant to Health Maintenance Insurance [facility] Address[place] [id number] [facility] [employer] Address: [place] [id number] Care Teams Computer Network And Systems Engineer Relationship Specialty Start Date End Date No, Physician PCP - General 03/27/20
--- OUTSIDE RECORDS SUMMARY | 2025-06-04 15:46 | XMS_ITS | Clinical Summary ---
Author Organization [facility] Address [address] [place] [address] Care Team Providers Care Passenger Attendant Name Role Phone Binh Lopez MD Primary Care Provider [phone] Source Comments [facility],non-owned Affiliates and Associated Physician Practices is amultiple site organization consisting of ambulatory clinics and hospital sitesin [place], [place], [place] and [place]. This disclosure is being madepursuant to the Care Everywhere program and may not contain all information available regarding this patient. Last updated 18.[facility] Allergies Active Allergy Reactions Criticality Noted Date Comments Clarithromycin Palpitations Medium 04/09/2017 Penicillin G Other Low 07/17/2016 Sulfa Drugs Other Low 07/17/2016 Medications * Be aware that medications may not be up to date on this document. Alwaysverify current medications with the patient. mometasone-form oterol (DULERA) 100-5 MCG/ACT inhaler Dulera 100 mcg-5 mcg/actuatio n HFA aerosol inhaler INL 2 PFS PO BID Active albuterol HFA (PROVENTIL;VENT DENNYS;PROAIR) 108 (90 Base) MCG/ACT inhaler INL 2 PFS PO Q 4 H PRN 2 06/17/2019 Active Active Problems Problem Noted Date Diagnosed Date Dorsalgia 08/07/2016 Anesthesia of skin 08/07/2016 Family History Medical History Relation Name Comments Diabetes Maternal Uncle Relation Name Status Comments Maternal Uncle Social History Tobacco Use Types Packs/Day Years Used Date Smoking Tobacco: Never Smokeless Tobacco: Never Alcohol Use Standard Drinks/Week Comments Yes 0 (1 standard drink = 0.6 oz pur e alcohol) Sex and Gender Information Value Date Recorded Sex Assigned at Not on file 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 Gender Identity Not on file Sexual Orientation Not on file Last Filed Vital Signs Vital Sign Reading Time Taken Comments Blood Pressure 122/76 08/03/2019 1:28 PM CDT Pulse 88 08/03/2019 1:28 PM CDT Temperature 36.6 C (97.8 F) 08/07/2016 3:27 PM CDT Respiratory Rate 20 08/03/2019 1:28 PM CDT Oxygen Saturation 99% 08/03/2019 1:28 PM CDT Inhaled Oxygen Concentration - - Weight 124.7 kg (275 lb) 08/03/2019 1:28 PM CDT Height 188 cm (6' 2) 08/03/2019 1:28 PM CDT Body Mass Index 35.31 08/03/2019 1:28 PM CDT Plan of Treatment Health Maintenance Due Date Last Done Comments LIPID TESTING 1982 HIV SCREENING 1997 HEPATITIS C SCREENING 05/10/2000 DTAP/TDAP/TD VACCINES (1 - Tdap) 2001 HEPATITIS B VACCINE (1 of 3 - 19+ 3-dose series) 2001 HPV VACCINE (1 - 3-dose SCDM series) 2009 COVID-19 VACCINE (1 - 2023-2 5 season) 2024 DEPRESSION SCREENING 11/09/2024 INFLUENZA VACCINE (#1) 2025 8, 08/25/2017 ZOSTER VACCINE (1 of 2) 2032 HIB VACCINE Aged Out No longer eligi ble based on patient's age to complete this topic MENINGOCOCCAL (Group B) VACCINE SHARED DECISION-MAKING Aged Out No longer eligible based on patient's age to complete this topic MENINGOCOCCAL GROUPS A/C/Y/W VACCINE Aged Out No longer eligible b ased on patient's age to complete this topic PNEUMOCOCCAL VACCINE Aged Out No long er eligible based on patient's age to complete this topic Insurance [facility] Care Teams Passenger Attendant Relationship Specialty Start Date End Date Binh Lopez MD [address] [facility] [address] [place] [address] PCP - General 07/31/15
--- OUTSIDE RECORDS SUMMARY | 2025-06-04 15:46 | XMS_ITS | Referral Summary ---
Author Organization [facility] Medical Office Building [address] Address [address] [place] [address] Care Team Providers Care Bearing Inspector Name Role Phone No, Physician Primary Care Provider [phone] Allergies Active Allergy Reactions Criticality Noted Date [...] invsive procedures. reasured him and return prn. 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
--- OUTSIDE RECORDS SUMMARY | 2025-06-04 15:47 | XMS_ITS | Clinical Summary ---
Author Organization [facility] Address [address] [place] [address] Phone Care Team Providers Care Development Rep Name Role Phone Zaira Ghotra APRN, ALEX Primary Care Pro vider Allergies Active Allergy Reactions Criticality Noted Date Comments Clarithromycin Palpitations Medium 04/09/2017 Penicillins Other (see Comments) 05/17/2020 Pt was told as a kid not to take Sulfa Antibiotics Other (see Comments) 05/17/20 20 Pt was told as a kid not to take. Medications Mometasone Furo-Formoterol Fum 100-5 MCG/ACT Aerosol Dulera 100 mcg-5 mcg/actuatio n HFA aerosol inhaler INL 2 PFS PO BID Active albuterol 108 (90 Base) MCG/ACT Aerosol Solution INL 2 PFS PO Q 4 H PRN 02/26/2020 Active pantoprazole (PROTONIX) 40 MG Tablet Delayed ResponseIndicati ons:Gastroesopha geal reflux disease, unspecified whether esophagitis present Take 1 Tab by mouth 2 times daily. 180 Tab 1 09/06/2020 Active hyoscyamine (ANASPAZ, LEVSIN) 0.125 MG Tablet Take 1 Tab by mouth every 6 hours as needed for Cramping. 120 Tab 2 09/12/2020 Active Active Problems Problem Noted Date Diagnosed Date Gastroesophageal reflux disease 03/13/2020 Asthma 11/23/2018 Hyperglycemia 06/26/2017 Hyperlipidemia 06/26/2017 Obese 06/26/2017 Immunizations Immunization Administration Dates Next Due Hepatitis A And Hepatitis B Vaccine 02/17/2008,0 01/17/2008 Influenza Vaccine 09/16/2015 Influenza Vaccine, Quadrivalent, PF 08/17/2019,1 ,08/25/2017 TDAP Vaccine 06/26/2017,06/25/2017 Social History Tobacco Use Types Packs/Day Years Used Date Smoking Tobacco: Never Smokeless Tobacco: Never Tobacco Cessation:Counseling Given: No Alcohol Use Standard Drinks/Week Comments Yes 0 (1 standard drink = 0.6 oz pur e alcohol) Sex and Gender Information Value Date Recorded Sex Assigned at Not on file Legal Sex Male 5:40 PM CDT Gender Identity Not on file Sexual Orientation Not on file Last Filed Vital Signs Vital Sign Reading Time Taken Comments Blood Pressure 116/80 09/06/2020 9:22 AM CDT Pulse 90 09/06/2020 9:22 AM CDT Temperature 36.6 C (97.9 F) 09/06/2020 9:22 AM CDT Respiratory Rate 16 09/06/2020 9:22 AM CDT Oxygen Saturation 99% 09/06/2020 9:22 AM CDT Inhaled Oxygen Concentration - - Weight 115.7 kg (255 lb) 09/06/2020 9:22 AM CDT Height 188 cm (6' 2) 05/17/2020 2:56 PM CDT Body Mass Index 32.74 05/17/2020 2:56 PM CDT Plan of Treatment Health Maintenance Due Date Last Done Comments Hepatitis C Virus (HCV) Screening 1982 Human Papillomavirus (HPV) Immunization (1 - Male 3-dose series) 1997 Pneumococcal Immunization Combined (1 of 2 - PCV) 2001 Hepatitis B Immunization (3 of 3 - Hep B Twinrix 3-dose series) 07/19/2008 02/17/2008, 01/17/2008 SARS-COV-2 Immunization ( - season) 2024 Influenza Immunization (#1) 07/10/202507/2019, 08/11/2018, 08/25/2017, Additional history exists Colonoscopy 08/09/2030 08/09/2020 Colorectal Cancer Screening 08/09/2030 Respiratory Syncytial Virus (RSV) Immunization (Adult) (1 - 1-dose 75+ series) 2057 DTaP/Tdap/Td Immunization Discontinued 06/26/2017, Meningococcal Immunization (ACWY) Aged Out No longer eligible based on patient's age to complete this topic Rotavirus Immunization Aged Out No lo nger eligible based on patient's age to complete this topic Procedures Procedure Name Priority Date/Time Associated Diagnosis Comments COLONOSCOPY Routine 08/09/2020 from Last 3 Months or Most Recently Relevant to Health Maintenance Results * COLONOSCOPY (08/09/2020) Marcus Mae DO PROCEDURE/MINOR SURGICAL ORDERA BLES Final Result from Last 3 Months or Most Recently Relevant to Health Maintenance Insurance MEDICAID [place] Care Teams Development Rep Relationship Specialty Start Date End Date Zaira Ghotra APRN, EMPLOYMENT PROGRAMS ANALYST [address] [place] [id number] PCP - General Certified Nurse Practitioner 05/10/20
--- OUTSIDE RECORDS SUMMARY | 2025-06-04 15:47 | XMS_ITS | Clinical Summary ---
Author Organization [facility] Address [address] [place] [address] Care Team Providers Care Speck Dyer Name Role Phone Pilar Barrett NP Primary Care Provider [phone] Allergies Active Allergy Reactions Criticality Noted Date Comments Penicillins Unknown 07/31/2023 Sulfa Antibiotics Unknown 07/31/2023 Medications No known medications Social History Tobacco Use Types Packs/Day Years Used Date Smoking Tobacco: Never Smokeless Tobacco: Never Tobacco Cessation:Counseling Given: No Alcohol Use Standard Drinks/Week Comments Not Currently 0 (1 standard drink = 0.6 oz pur e alcohol) PHQ-2 Answer Date Recorded Patient Health Questionnaire-2 Score 0 10/14/2024 Sex and Gender Information Value Date Recorded Sex Assigned at Not on file Legal Sex Male 7:40 PM CDT Gender Identity Not on file Sexual Orientation Not on file Last Filed Vital Signs Vital Sign Reading Time Taken Comments Blood Pressure 112/80 10/14/2024 1:54 PM PILOT BOAT CAPTAIN Pulse 92 10/14/2024 1:54 PM PILOT BOAT CAPTAIN Temperature 37.1 C (98.7 F) 10/14/2024 1:54 PM PILOT BOAT CAPTAIN Respiratory Rate 18 10/14/2024 1:54 PM PILOT BOAT CAPTAIN Oxygen Saturation 93% 10/14/2024 1:54 PM PILOT BOAT CAPTAIN Inhaled Oxygen Concentration - - Weight 117.9 kg (260 lb) 10/14/2024 1:54 PM PILOT BOAT CAPTAIN Height 188 cm (6' 2) 10/14/2024 1:54 PM PILOT BOAT CAPTAIN Body Mass Index 33.38 10/14/2024 1:54 PM PILOT BOAT CAPTAIN Plan of Treatment Health Maintenance Due Date Last Done Comments Annual Physical 1985 Hepatitis B Vaccines (3 of 3 - Hep B Twinrix 3-dose series) 07/19/2008 02/17/2008, 01/17/2008 HPV Vaccines (1 - 3-dose SCD M series) 2009 COVID-19 Vaccine (3 - 2023-2 5 season) 2024 01/10/2022, 12/20/2021 PHQ-2 (Physician Yuhaaviatam) 11/09/2024 10/14/2024 DTaP, Tdap and Td Vaccines ( 3 - Td or Tdap) 06/26/2027 06/26/2017, 06/25/2017 Hepatitis C Completed 08/09/2024, 08/09/2024 Meningococcal B Vaccine Aged Out No l onger eligible based on patient's age to complete this topic Meningococcal Vaccine Aged Out No viviana robbie eligible based on patient's age to complete this topic Pneumococcal Vaccine: Pediatrics (0 to 5 Years) and At-Risk Patients (6 to 49 Years) Aged Out No longer eligible b ased on patient's age to complete this topic RSV Immunizations Under 20 Months Aged Out No longer eligible b ased on patient's age to complete this topic Insurance Advance Directives Documents on File Type Date Recorded Patient Ems Director Expl anation Advance Directives and Living Will 02/18/2016 12:00 AM ADVANCED DIRECTIVES Care Teams Speck Dyer Relationship Specialty Start Date End Date Pilar Barrett NP [address] [facility] [place] [address] PCP - General NURSE PRACTITIONER 06/13/24
--- OUTSIDE RECORDS SUMMARY | 2025-06-04 15:47 | XMS_ITS | Data Portability ---
Author Organization [facility], Main Office Address [address] [place] [address] Care Team Providers Care Field Secretary Name Role Phone ZAIRA MEYERS Primary Care Provider ZAIRA MEYERS Referring Provider [phone] Assessment No assessment recorded. Plan of Treatment Reminders Order Date Submit Date Provider Last Modified By Organization Details Last Modified Time Details Appointments None recorded. Lab rapid flu (A+B) [address], [address], 5 17:13:10 rapid strep group A, throat [address], [address], 4 10:34:52 Referral None recorded. Procedures None recorded. Surgeries None recorded. Imaging XR, chest, 2 view 2024 025 [facility] New Fax # As Of 02/29/24), [address] [place], [address], 5 11:02:09 electrocard iogram, routine ECG, 12 leads min 2024 025 [facility] New Fax # As Of 02/29/24), [address] [place], [address], 5 05:07:55 Medication Orders Zithromax Z-Buck 250 mg tablet 2024 025 [facility] #[id number], [address] [place] [address], [id number], 5 11:01:14 Medrol (Buck) 4 mg tablets in a dose pack 2024 025 [facility] #[id number], [address] [place] [address], [id number], 5 11:01:18 triamcinolo ne acetonide 40 mg/mL suspension for injection 2024 025 [facility] Not available 11:16:45 amoxicillin 875 mg-potassiu m clavulanate 125 mg tablet 2024 025 [facility] #27942, [address] [place] [address], [id number], 5 16:21:52 Airsupra 90 mcg-80 mcg/actuati on HFA aerosol inhaler 2024 025 [facility]acy #6926, [address], [address], 5 16:39:48 Symbicort 160 mcg-4.5 mcg/actuati on HFA aerosol inhaler 2024 025 [facility] #6926, [address] [place] [address], [address], 5 16:39:47 amoxicillin 875 mg-potassiu m clavulanate 125 mg tablet 2023 024 [facility] #95693, [address] [place] [address], [id number], 5 16:21:52 Airsupra 90 mcg-80 mcg/actuati on HFA aerosol inhaler 2023 024 [place] [facility] #30221, [address] [place], [place], [id number], 4 16:51:17 triamcinolo ne acetonide 40 mg/mL suspension for injection 2023 024 Not available 5 16:21:58 nystatin 100,000 unit/mL oral suspension 2023 024 [facility] #24794, [address] [place], [place], [id number], 4 16:38:19 Patient TargetsNo targets recorded. Patient InstructionsNo instructions recorded. Reason for Referral None Reported. Results Created Date Observation Date Name Description Value Unit Range Abnormal Flag Note LastModifiedBy Organization Detail LastModifiedTime 09/02/20 24 09/02/2024 rapid strep group A, throa t STREP A negati ve Not Available [address], [address], 09/02/2024 10:03:20 12/15/19 25 12/15/2024 rapid flu (A+B) Flu A negati ve Not Available [address], [address], 12/15/2024 16:53:44 12/15/19 25 12/15/2024 rapid flu (A+B) Flu B negati ve Not Available [address], [address], 12/15/2024 16:53:44 10/11/20 24 10/10/2024 XR, chest , 2 view No observ ation record ed. [facility] [address], [place], [address], 10/11/2024 10:27:40 11/18/19 25 11/18/2024 CT, abdom en + pelvi s, w/ contr ast No observ ation record ed. [address], [place], [address], 11/21/2024 09:14:21 01/03/20 25 01/03/2025 elect rocar diogr am, routi ne ECG, 12 leads min No observ ation record ed. [facility] - Radiology [address] [facility], [place], [address], 01/04/2025 09:09:25 01/03/20 25 01/03/2025 elect rocar diogr am, routi ne ECG, 12 leads min No observ ation record ed. [address] - Radiology New Fax # As Of 02/29/24) [address] [place], [address], 01/04/2025 11:01:22 01/04/20 25 01/03/2025 XR, chest , 2 view No observ ation record ed. [address] Radiology New Fax # As Of 02/29/24) [id number] [place] [address], [address], 01/04/2025 11:02:09 Result Notes None recorded. Problems Name Problem SNOMED Code Status Onset Date Resolution Date Notes Provider Name and Address Organization Details Recorded Time Microscop ic hematuria 247147878 Active Not Available [employer] 3 17:29:44 Spinal stenosis of lumbar region 73990198 Active 2016 Not Available [facility] 3 17:29:44 Renal mass 612095642 Active 2016 Not Available [facility] 3 17:29:45 Sleep apnea 40772779 Active 2016 Not Available [facility] 3 17:29:45 Obese 103006892 Active 2016 Not Available [facility] 3 17:29:45 Hyperlipi demia 41241094 Active 2016 Not Available [facility] 3 17:29:45 Hyperglyc emia 39757783 Active 2016 Not Available [facility] 3 17:29:45 Sinusitis 30185947 Active 2016 Not Available [facility] 3 17:29:45 Persisten t cough 926590568 Active 2017 Not Available [employer] 3 17:29:45 Pruritus ani 73872248 Active 2017 Not Available [facility] 3 17:29:45 Allergic rhinitis 82748851 Completed 201703/23/2024 VICKY Arita [address], [place], [address] , [employer] [facility] [employer] [facility] 4 17:24:12 Asthma 199226364 Active 2018 Not Available [facility] 3 17:29:44 Gastroeso phageal reflux disease 315152221 Active 2019 Not Available [facility] 3 17:29:45 Unintenti onal weight loss 908490491 Active 2019 Not Available [facility] 3 17:29:45 Celluliti s of right knee 80942121449 942011 Active 2022 Aung Jones MD [address], [address], [place], [address] , [employer] [facility] [employer] [facility] 3 17:01:34 Pain of right knee joint 78457525113 4100 Active 2022 Aung Jones MD [address], [place], [address] , [employer] [facility] [employer] [facility] 3 17:21:39 Obesity 989215472 Active 2022 Aung Jones MD [address], [place], [address] , [place] [facility] 3 17:21:46 Psoriasis 4824937 Active 2022 Aung Jones MD [address], [address], [place], [address] , [place] [facility] 3 17:21:46 Acute sinusitis 31355109 Completed 202203/23/2024 VICKY Arita [address], [address], [place], [address] , [place] [facility] 4 17:24:02 Chronic low back pain 420194169 Active 2022 Zaira Meyers NP [address], [address], [place], [address] , [place] [facility] 3 17:47:23 Psoriatic arthritis 140174882 Active 2023 VICKY Arita [address], [address], [place], [address] , [place] [facility] 4 16:43:27 Mucus in stool 988668637 Active 2023 VICKY Arita [address], [address], [place], [address] , [place] [facility] 4 16:51:17 Celiac disease 856762282 Active 2023 VICKY Arita [address], [address], [place], [address] , [place] [facility] 4 16:51:57 Acute tonsillit is 77522804 Active 2023 VICKY Arita [address], [address], [place], [address] , [place] [facility] 4 17:07:22 Depressiv e disorder 05415139 Active 2023 VICKY Arita [address], [address], [place], [address] , [place] [facility] 4 17:22:29 Prediabet es 848248113 Active 2023 VICKY Arita [address], [address], [place], [address] , [place] [facility] 4 16:19:49 Nausea and vomiting 99515235 Active 2023 VICKY Arita [address], [address], [place], [address] , [place] [facility] 4 16:40:03 Allergic contact dermatiti s 187723527 Active 2023 VICKY Arita [address], [address], [place], [address] , [place] [facility] 4 09:50:57 Epigastri c pain 34974439 Active 2023 VICKY Arita [address], [address], [place], [address] , [employer] [facility] [employer] [facility] 4 10:06:11 Acute urticaria 046568521 Active 2023 VICKY Arita [address], [address], [place], [address] , [facility] - S [employer] [facility] 4 16:55:59 Wheezing 04080022 Active 2023 VICKY Arita [address], [place], [address] , [facility] 4 16:28:57 Sore throat 673626870 Active 2023 VICK[address]ta [address], [place], [address] , [facility] 4 10:03:16 Candidias is of mouth 62363219 Active 2023 Fiorella Vogel NP [address], [place], [address] , [place] [employer] 5 15:09:10 Acute bacterial sinusitis 34191151 Active [address] [facility], [address] [address], [place], [address] , [employer] [facility] [employer] 4 16:50:55 Cough 73872909 Active [address] [facility], [address] [address], [place], [address] , [employer] [facility] [employer] 5 16:53:39 Chest pain 04314087 Active [address] [facility], [address] [address], [place], [address] , [employer] [facility] [employer] 5 16:28:16 Acute bronchiti s 73428821 Active [address] [facility], [place] [address], [place], [address] , [employer] 5 11:00:19 Notes:Some problems listed i n Documents: #[id number], #[id number], #[id number], #[id number], #[id number], #[id number] could not be added to this patient's chart. Please review these documents and add these problems to the patient's chart manually as needed. Problem Notes None recorded. Medical Equipment None Reported. Allergies Allergen ID Allergen Name Allergen Category Reaction Reaction Severity Criticality Documentation Date Start Date Code Code System Note Provider Name and Address Organization Details Recorded Time 35264 Substance with sulfonami de structure and antibacte rial mechanism of action (substanc e) medicatio n Not available Not available Not available 01/07/2023 45550 8003 SNOMED Zaira Davenport RN [facility], [place] [employer] [facility] [employer] 4 16:02:18 44762 Product containin g penicilli n (product) medicatio n Not available Not available Not available 01/07/2023 63530 8001 SNOMED Marta Jones MD [address] [facility] [address], [place], [address], [facility] 3 17:02:45 18034 clarithro mycin medicatio n tachycard ia moderate Not available 01/07/20232016 14986 RxNorm Zaira Davenport RN [facility], [facility] 4 16:02:15 Medications Name Sig Start Date Stop Date Status Note LastModified by Organization Details LastModified Time losartan 50 mg tablet 06/25 completed Not Available Not Available Not Available cyclobenzap rine 10 mg tablet Take 1 tablet 3 times a day by oral route. active back pain Not Available Not Available Not Available amoxicillin 500 mg capsule TAKE 1 CAPSULE BY MOUTH EVERY 8 HOURS FOR 7 DAYS DIRECTED 05/02 completed Not Available Not Available Not Available cefazolin 1 gram solution for injection Take 1 g by injection route for 1 day. 08/27 completed Not Available Not Available Not Available methocarbam ol 500 mg tablet 06/25 completed Not Available Not Available Not Available metformin 500 mg tablet 06/25 completed Not Available Not Available Not Available nystatin 100,000 unit/mL oral suspension SHAKE LIQUID AND TAKE 5 ML BY MOUTH FOUR TIMES DAILY FOR 6 DAYS DIRECTED active Not Available Not Available No t Available venlafaxine ER 37.5 mg capsule,ext ended release 24 hr 06/25 completed Not Available Not Available Not Available prednisone 10 mg tablet Take 1 tablet every day by oral route as directed for 7 days. active Not Available Not Available No t Available venlafaxine ER 75 mg capsule,ext ended release 24 hr 06/25 completed Not Available Not Available Not Available doxycycline hyclate 100 mg capsule TAKE 1 CAPSULE BY MOUTH TWICE DAILY FOR 7 DAYS 09/01 completed Not Available Not Available Not Available atorvastati n 20 mg tablet TAKE 1 TABLET BY MOUTH EVERY DAY AT BEDTIME 10/27 completed Not Available Not Available Not Available clindamycin HCl 300 mg capsule TAKE 1 CAPSULE BY MOUTH THREE TIMES DAILY FOR 10 DAYS DIRECTED 11/17 completed Not Available Not Available Not Available albuterol sulfate 2.5 mg/3 mL (0.083 %) solution for nebulizatio n USE 1 VIAL VIA NEBULIZER EVERY 4 HOURS NEEDED FOR SHORTNESS OF BREATH OR WHEEZING active Not Available Not Available No t Available triamcinolo ne acetonide 0.5 % topical cream APPLY A THIN LAYER TO THE AFFECTED AREA(S) BY TOPICAL ROUTE 2 TIMES PER DAY active Not Available Not Available No t Available cetirizine 10 mg tablet Take 1 tablet every day by oral route. 10/08 completed prn Not Available Not Available Not Available azithromyci n 250 mg tablet TAKE 2 TABLETS (500 MG) BY ORAL ROUTE ONCE DAILY FOR 1 DAY THEN 1 TABLET (250 MG) BY ORAL ROUTE ONCE DAILY FOR 4 DAYS active Not Available Not Available No t Available benzonatate 200 mg capsule Take 1 capsule 3 times a day by oral route as needed for 10 days. 01/06 completed Not Available Not Available Not Available clarithromy carlin 500 mg tablet Take 1 tablet every 12 hours by oral route for 14 days. active Not Available Not Available No t Available hydrocodone 5 mg-acetamin ophen 325 mg tablet 02/03 completed Not Available Not Available Not Available fluconazole 200 mg tablet TAKE 1 TABLET BY MOUTH EVERY DAY DIRECTED FOR 7 DAYS 10/27 completed Not Available Not Available Not Available meloxicam 15 mg tablet TAKE 1 TABLET BY MOUTH EVERY DAY 07/04 completed Not Available Not Available Not Available famotidine 40 mg tablet TK 1 T PO QD 09/01 completed Not Available Not Available Not Available prednisone 20 mg tablet TAKE 1 TABLET BY MOUTH THREE TIMES DAILY FOR 3 DAYS THEN TAKE 1 TABLET BY MOUTH TWICE DAILY FOR 3 DAYS THEN TAKE 1 TABLET BY MOUTH DAILY FOR 3 DAYS 08/24 completed Not Available Not Available Not Available triamcinolo ne acetonide 0.5 % topical ointment 06/25 completed Not Available Not Available Not Available metronidazo le 500 mg tablet Take 1 tablet every 12 hours by oral route for 14 days. active Not Available Not Available No t Available lidocaine HCl 2 % mucosal jelly APPLY RECTALLY TID PRN FOR PAIN 01/23 completed Not Available Not Available Not Available ciprofloxac in 500 mg tablet 10/06 completed Not Available Not Available Not Available sulfamethox azole 800 mg-trimetho prim 160 mg tablet TAKE 1 TABLET BY MOUTH EVERY 12 HOURS FOR 7 DAYS 08/24 completed Not Available Not Available Not Available omeprazole 40 mg capsule,del ayed release 06/25 completed Not Available Not Available Not Available tramadol 50 mg tablet 06/25 completed Not Available Not Available Not Available triamcinolo ne acetonide 0.1 % topical cream APPLY THIN LAYER TOPICALLY TO THE AFFECTED AREA TWICE DAILY 08/24 completed Not Available Not Available Not Available ondansetron 8 mg disintegrat ing tablet Place 1 tablet twice a day by transling ual route. 08/04 completed Not Available Not Available Not Available meloxicam 7.5 mg tablet 06/25 completed Not Available Not Available Not Available betamethaso ne acetate and sodium phos 6 mg/mL suspension for injection Take 1 mL every day by injection route as directed for 1 day. 08/24 completed Not Available Not Available Not Available doxycycline monohydrate 100 mg capsule 1 tab po bid x 7 days active Not Available Not Available No t Available triamcinolo ne acetonide 40 mg/mL suspension for injection Take 1.5 mL every day by injection route as directed for 1 day. 2024 active Not Available Not Available Not Avai lable hydrocodone 7.5 mg-acetamin ophen 325 mg tablet 06/25 completed Not Available Not Available Not Available cephalexin 500 mg capsule Take 1 capsule 3 times a day by oral route for 7 days. 08/18 completed Not Available Not Available Not Available pantoprazol e 40 mg tablet,annemarie yed release TK 1 T PO BID 09/01 completed Not Available Not Available Not Available hyoscyamine sulfate 0.125 mg tablet 08/04 completed Not Available Not Available Not Available prednisone 50 mg tablet TAKE 1 TABLET BY MOUTH DAILY FOR 5 DAYS active Not Available Not Available No t Available indomethaci n 50 mg capsule 06/25 completed Not Available Not Available Not Available gabapentin 300 mg capsule TAKE 1 CAPSULE BY MOUTH TWICE DAILY 06/16 completed Not Available Not Available Not Available omeprazole 20 mg capsule,del ayed release TAKE 1 CAPSULE BY MOUTH EVERY DAY active Not Available Not Available No t Available diclofenac sodium 75 mg tablet,annemarie yed release TK 1 T PO BID WF 01/06 completed Not Available Not Available Not Available cephalexin 500 mg tablet TAKE 1 TABLET BY MOUTH EVERY 8 HOURS FOR 7 DAYS 11/17 completed Not Available Not Available Not Available montelukast 10 mg tablet TAKE 1 TABLET BY MOUTH EVERY DAY active Not Available Not Available No t Available hydroxyzine HCl 25 mg tablet TAKE 2 TABLETS BY MOUTH EVERY DAY AT BEDTIME FOR 10 DAYS 08/24 completed Not Available Not Available Not Available clobetasol 0.05 % topical ointment APPLY A THIN LAYER TO THE AFFECTED AREA UP TO TWICE DAILY FOR 2 WEEKS. DO NOT USE ON FACE OR GROIN 03/23 completed Not Available Not Available Not Available lorazepam 1 mg tablet 06/25 completed Not Available Not Available Not Available levofloxaci n 500 mg tablet TK 1 T PO Q 24 H FOR 10 DAYS 06/16 completed Not Available Not Available Not Available methylpredn isolone 4 mg tablets in a dose pack FOLLOW PACKAGE DIRECTION S active Not Available Not Available No t Available albuterol sulfate HFA 90 mcg/actuati on aerosol inhaler INHALE 2 PUFFS BY MOUTH EVERY 4 HOURS NEEDED 05/02 completed Not Available Not Available Not Available ondansetron 4 mg disintegrat ing tablet DIS 1 T ON THE TONGUE Q 6 H PRF NAUSEA OR VOM 01/23 completed Not Available Not Available Not Available fluticasone propionate 50 mcg/actuati on nasal spray,suspe nsion SHAKE LQ AND U 1 SPR IEN D UTD 02/03 completed Not Available Not Available Not Available doxycycline hyclate 100 mg tablet 1 tab po bid for 7 days 09/01 completed Not Available Not Available Not Available naproxen 500 mg tablet 06/25 completed Not Available Not Available Not Available amoxicillin 875 mg-potassiu m clavulanate 125 mg tablet TAKE 1 TABLET BY MOUTH EVERY 12 HOURS FOR 10 DAYS active Not Available Not Available No t Available duloxetine 30 mg capsule,del ayed release Take 1 capsule every day by oral route as directed for 90 days. 05/02 completed Not Available Not Available Not Available Symbicort 160 mcg-4.5 mcg/actuati on HFA aerosol inhaler Inhale 2 puffs twice a day by inhalatio n route as directed for 30 days. active Not Available Not Available No t Available azelastine 205.5 mcg (0.15 %) nasal spray 1-2 spray each nostril bid 07/20 completed Not Available Not Available Not Available Dulera 100 mcg-5 mcg/actuati on HFA aerosol inhaler INL 2 PFS PO BID 11/17 completed Not Available Not Available Not Available Super Thin Lancets 28 gauge 06/25 completed Not Available Not Available Not Available Otezla Starter 10 mg (4)-20 mg (4)-30 mg(19) tablets in a dose pack Take as directed active Not Available Not Available No t Available Otezla 30 mg tablet active Not Available Not Available No t Available True Metrix Glucose Test Strip 06/25 completed Not Available Not Available Not Available True Metrix Glucose Meter U UTD 06/25 completed Not Available Not Available Not Available Otezla Starter 10 mg (4)-20 mg (4)-30 mg(47) tablets in a dose pack Take by oral route for 30 days. 05/02 completed Not Available Not Available Not Available fluticasone 113 mcg-salmete rol 14 mcg/actuati on breath activated powdr Inhale 1 puff twice a day by inhalatio n route. 07/20 completed Not Available Not Available Not Available Airsupra 90 mcg-80 mcg/actuati on HFA aerosol inhaler INHALE 2 PUFFS BY MOUTH FOUR TIMES DAILY NEEDED active Not Available Not Available No t Available Vitals Date Recorded Body height Body mass index (BMI) Body weight Body temperature Respiratory rate Pain severity - 0-10 verbal numeric rating [Score] - Reported Heart rate Oxygen saturation Oxygen saturation in Arterial blood by Pulse oximetry Systolic And Diastolic Provider Name and Address Organization Details Last Updated DateTime 5 187.96 cm 32.5 kg/m2 352871. 32 g 98 [degF] 24 /min 1 101 /min 97 % 97 % 156/102 mm[Hg] Zaira Davenport RN [place] [facility] [employer] [facility] 5 16:13:15 Date Recorded Body height Body mass index (BMI) Body weight Body temperature Heart rate Respiratory rate Oxygen saturation Oxygen saturation in Arterial blood by Pulse oximetry Pain severity - 0-10 verbal numeric rating [Score] - Reported Systolic And Diastolic Provider Name and Address Organization Details Last Updated DateTime 5 187.96 cm 32.5 kg/m2 860690. 92 g 97.8 [degF] 90 /min 20 /min 97 % 97 % 2 120/60 mm[Hg] GAUTAM Padilla - [facility] [employer] [facility] 5 16:21:35 Date Recorded Body height Body mass index (BMI) Body weight Body temperature Heart rate Respiratory rate Oxygen saturation Oxygen saturation in Arterial blood by Pulse oximetry Pain severity - 0-10 verbal numeric rating [Score] - Reported Systolic And Diastolic Provider Name and Address Organization Details Last Updated DateTime 5 187.96 cm 32.2 kg/m2 125071. 24 g 97.3 [degF] 79 /min 20 /min 98 % 98 % 0 170/100 mm[Hg] Zaira Davenport RN [facility] [employer] [facility] 5 10:56:11 Date Recorded Body height Body mass index (BMI) Body weight Body temperature Heart rate Respiratory rate Oxygen saturation Oxygen saturation in Arterial blood by Pulse oximetry Pain severity - 0-10 verbal numeric rating [Score] - Reported Systolic And Diastolic Provider Name and Address Organization Details Last Updated DateTime 4 187.96 cm 34.3 kg/m2 026684. 91 g 97.2 [degF] 100 /min 20 /min 97 % 97 % 1 140/80 mm[Hg] Zaira Davenport RN [facility] [employer] [facility] 4 10:01:01 Date Recorded Body height Body mass index (BMI) Body weight Body temperature Heart rate Respiratory rate Oxygen saturation Oxygen saturation in Arterial blood by Pulse oximetry Pain severity - 0-10 verbal numeric rating [Score] - Reported Systolic And Diastolic Provider Name and Address Organization Details Last Updated DateTime 4 187.96 cm 33.1 kg/m2 919847. 83 g 97.7 [degF] 98 /min 20 /min 97 % 97 % 5 136/94 mm[Hg] Zaira Davenport RN [facility] [employer] [facility] 4 16:42:00 Social History Question Answer Notes LastModified by Organizat ion Details LastModified Time Tobacco Smoking Status Never Smoker Zaira Davenport RN [facility], [facility] [employer] [facility] 09/01/2023 17:23:45 Do You Have An Advance Directive? No Information not available 09/01/2023 Is Blood Transfusion Acceptable In An Emergency? Yes Information not available 09/01/2023 What Is Your Level Of Caffeine Consumption? Occasional Coffee Energy Drink At Times, Tea Information not available 01/03/2025 What Is Your Code Status? Full Code Information not available 09/01/2023 In The 14 Days Before Symptom Onset, Have You Had Close Contact With A Laboratory-confi rmed COVID-19 While That Case Was Ill? No Information not available 09/01/2023 In The 14 Days Before Symptom Onset, Have You Had Close Contact With A Person Who Is Under Investigation For COVID-19 While That Person Was Ill? No Information not available 09/01/2023 What Type Of Diet Are You Following? REGULAR Information not available 09/01/2023 Which Illicit Or Recreational Drugs Have You Used? MJ Information not available 09/01/2023 How Many Days Of Moderate To Strenuous Exercise, Like A Brisk Walk, Did You Do In The Last 7 Days? 3 Information not available 09/01/2023 On Those Days That You Engage In Moderate To Strenuous Exercise, How Many Minutes, On Average, Do You Exercise? 60 Information not available 09/01/2023 Have There Been Any Changes To Your Family Or Social Situation? No Information not available 09/01/2023 How Many Years Have You Used Illicit Or Recreational Drugs? 25 Information not available 09/01/2023 Do You Use Insect Repellent Routinely? Yes Information not available 09/01/2023 Where Do You Live? SingleLevelHouse Information not available 09/01/2023 Do You Have A Medical Power Of Maintenance Custodian? No Information not available 09/01/2023 What Was The Date Of Your Most Recent Tobacco Screening? 01/08/2024 [email or web address] Information not available 01/08/2024 How Many Children Do You Have? 2 Information not available 09/01/2023 Do You Have Any Pets? Yes Information not available 09/01/2023 What Is Your Relationship Status? Information not available 09/01/2023 Do You Use Your Seat Belt Or Car Seat Routinely? Yes Information not available 09/01/2023 Do You Have Smoke And Carbon Monoxide Detectors In Your Home? Yes Information not available 09/01/2023 Are There Any Smokers In Your House? No Information not available 09/01/2023 Do You Participate In Social Media? Yes Information not available 09/01/2023 What Types Of Sporting Activities Do You Participate In? Weights Information not available 09/01/2023 Do You Use Sunscreen Routinely? No Information not available 09/01/2023 Have You Recently Traveled Abroad? No Information not available 09/01/2023 Have You Used IV Drugs? No Information not available 09/01/2023 Sex: Unknown Functional Status Question Answer Note LastModified by Organizat ion Details LastModified Time Do you use any illicit or recreational drugs? Yes Information not available 09/01/2023 What is your level of alcohol consumption? Occasional Information not available 09/01/2023 Are you currently employed? 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 Moderate Information not available 09/01/2023 Mental Status Question Answer Note LastModified by Organization D etails LastModified Time Do you feel stressed (tense, restless, nervous, or anxious, or unable to sleep at night)? [id number] Information not available 09/01/2023 Family History Nothing Reported. Medical History Condition Response ARTHRITIS Y USE OF BLOOD THINNERS Y GI PROBLEMS Y ASTHMA Y NEUROPATHY Y OTHER # 1 Y GOUT N BACK / NECK PROBLEMS Y Immunizations Vaccine Type Date Status Note Provider Nam e and Address Organization Details Recorded Time Tdap 06/25/2017 completed Not Available [facility] 01/07/2023 17:30:52 Influenza, split virus, quadrivalent, PF 10/10/2020 completed Not Available [facility] 3 17:30:52 Influenza, split virus, quadrivalent, PF 08/11/2018 completed Not Available [facility] 3 17:30:52 Influenza, split virus, quadrivalent, PF 08/25/2017 completed Not Available [facility] 17:30:52 Tdap 06/26/2017 completed Not Available [facility] 01/07/2023 17:30:52 Influenza, split virus, quadrivalent, PF 08/17/2019 completed Not Available [facility] 17:30:52 Influenza, split virus, trivalent, PF 08/24/2024 completed Zaira Davenport RN [facility], [place] - [facility] [employer] [facility] 08/24/2024 16:51:54 Past Encounters Encounter ID Performer Location Encounter Start Date Encounter Closed Date Diagnosis/Indication Diagnosis SNOMED-CT Code Diagnosis ICD10 Code Diagnosis Note [id number] Aung Jones MD [address] [address] 11/04/2022 00:00:00 11/04/2022 12:52:30 [id number] Aung Jones MD [address] [address] 08/04/2023 16:34:08 08/04/2023 17:26:27 Seen in emergency clinic 028966254 Z76.89 Cellulitis of right knee 6239032109 0756386 L03.115 Pain of ri ght knee joint 5187196180 72691 M25.561 Obesity 807365861 E66.9 [id number] Aung Jones MD [address] [address] 08/27/2023 17:08:06 08/27/2023 17:37:09 Cellulitis of right knee 8235880930 0915456 L03.115 Pain of ri ght knee joint 5944035843 36923 M25.561 Obesity 807617972 E66.9 Psoriasis 5596288 L40.9 [id number] Zaira Meyers NP [address] [address] 09/01/2023 17:11:58 09/01/2023 18:15:46 Acute sinusitis 96478263 J01.90 Cephalexin 500 mg po tid for 7 days. Anemia screening 7494617 07 Z13.0 Diabetes m ellitus screening 130679540 Z13.1 Thyroid di sorder screening 739309862 Z13.29 Hyperlipid emia screening 211883748 Z13.220 Cellulitis of right knee 8627916205 3706668 L03.115 finish clindamyci n. Kelfex sent. Pt states pcn no allergy and likely not sulfa either- was very young when had it last. Unsure reaction. Augmentin, clindamyci n, doxy, cefazolin inj, clarithrom ycin are meds hes been on. Referring to ID. Chronic low back pain 27 8123559 M54.50 MJ prn. Adult heal th examination 486342856 Z00.00 Encouraged well balanced meals, active lifestyle, and routine vision and dental appts. [id number] Zaira Meyers NP [address] [address] 11/17/2023 15:48:43 11/17/2023 18:25:22 Pain of right knee joint 7684427843 11283 M25.561 medrol dose buck, ortho referral. Cellulitis of right knee 8243943215 9255133 L03.115 Right knee flared again- will give bactrim for a flare if needed. Start if red, worsening fluid retention, or increased warmth to touch. notify office of such developing symptoms. [id number] Laurent Rodríguez MD [facility] [address] [place] [address] 01/08/2024 09:16:47 01/08/2024 09:56:27 Pain of right knee joint 7184912421 87342 M25.228 [id number] Aung Jones MD [address] [address] 03/23/2024 16:06:29 03/23/2024 17:28:52 Asthma 861178626 J45.909 Psoriatic arthritis 1563 78313 L40.50 Mucus in stool 301451019 R19.5 Hyperglycemia 13426599 R 73.9 Microscopic hematuria 19 6978357 R31.29 Hyperlipidemia 24667584 E78.5 Acute tonsillitis 921867 08 J03.90 Depressive disorder 3548 9007 F32.A [id number] Aung Jones MD [address] [address] 05/02/2024 15:57:47 05/02/2024 16:51:42 Psoriatic arthritis 204321315 L40.50 Asthma 544526319 J45.90 [id number] Aung Jones MD [address] [address] 07/04/2024 09:36:32 07/04/2024 10:08:09 Asthma 673862091 J45.909 Allergic c ontact dermatitis 251219732 L23.9 Epigastric pain 59808660 R10.13 Xifaxan samples provided [id number] Aung Jones MD [address] [address] 07/12/2024 16:35:32 07/12/2024 17:10:06 Allergic contact dermatitis 172193386 L23.9 [id number] Aung Jones MD [address] [address] 07/27/2024 16:26:47 07/27/2024 17:17:27 Allergic contact dermatitis 716814961 L23.9 Bite of insect 192087798 W57.XXXA [id number] Aung Jones MD [address] [address] 08/24/2024 16:12:11 08/24/2024 16:45:26 Asthma 963989668 J45.909 Wheezing 99535516 R06.2 Administra tion of influenza vaccine 12834454 Z23 [id number] Aung Jones MD [address] [address] 09/02/2024 09:49:59 09/02/2024 11:10:04 Sore throat 404574461 J02.9 Candidiasis of mouth 797 77396 B37.0 [id number] Aung Jones MD [address] [address] 10/27/2024 16:23:38 10/27/2024 16:55:03 Asthma 231235045 J45.Tomas9 Has been requiring rescue inhaler multiple times daily, does not want to take daily maintenanc e Acute bact erial sinusitis 90341643 J01.90 [id number] Aung Jones MD [address] [address] 12/15/2024 15:51:49 12/16/2024 08:38:01 Asthma 116755214 J45.Yamile Has been requiring rescue inhaler multiple times daily, does not want to take daily maintenanc e Acute bact erial sinusitis 72777800 J01.90 Cough 83583476 R05.9 [id number] Aung Jones MD [address] [address] 01/03/2025 16:11:03 01/03/2025 16:46:54 Chest pain 55621945 R07.9 Patient advised to seek care in the ER, pt does not want toWill go for XR and EKG and FU in 1 weekWill seek care in ER for worsening pain, SOB, Tachycardi a. [id number] VICKY Arita [address] [address] 03/03/2025 10:38:01 03/03/2025 12:05:11 Acute bronchitis 01402481 J20.9 recurrent, pt requesting steroid injection Acute bact erial sinusitis 92687450 J01.90 Advised that abx should be help until >7 days of illness Health Concerns Section Related Observation LastModified by Organization Detai ls LastModified Time None Recorded Concern Status LastModified by Organization Details LastModified Time None Recorded Advance Directives Directive N: Payers Insurance Date Sequence Insurance Name Policy Number Policy Alston Covered Member ID Alston Member ID Guarantor Name 04/25/[address] [facility] Wyatt Carrasco [id number] Wyatt Carrasco 08/04/2023 1 *SELF PAY* Rene Carrasco Notes Date Note Type Note Provider Name and Address Organization Details Recorded Time 09/02/2024 text/html Wyatt Carrasco is here today for a sore throat He states this started approx 3 days ago, has white spots in his throat. pain is minimal. Concerns that the white spots are spreading. Has been on steroids and uses albuterol VICKY Arita [address], [place], [address], [employer] 09/02/2024 10:14:10 10/27/2024 text/html Wyatt Carrasco is a 44 year old male patient here today with multiple concerns He states he has anxiety about his BP. Reassured that his BP is normal. He has had multiple XRs and consults with GI and Rheumatology He has concerns with sinus congestion, cough, feverish x 2 weeks. VICKY Arita [address], [place], [address], [employer] 10/27/2024 16:53:57 12/15/2024 text/html Wyatt Carrasco is a 44 year old male patient here today for continuous Asthma issues States he is going through albuterol before he is able to get refills. Is not taking daily maintenance Notes productive cough x 3 weeks. States worse at night time VICKY Arita [facility] [address], [address], [place], [address], [employer] 12/15/2024 17:26:29 01/03/2025 text/html Wyatt Carrasco is a 44 year old male patient here today for chest pressure and tachycardia States he went to the ER yesterday but left before he was seenHe is having pain on [place] sides of thoracic region and diaphragm. SOB, tachycardia. States his O2 was 70% and pulse was 200 yesterday at home but is unsure his pulse ox is accurate. States heart rate since has been 100-130Believes this may be anxiety as well VICKY Arita [facility] [address] [facility], [address], [place], [address], [employer] [facility] [employer] [facility] 01/03/2025 16:37:41 03/03/2025 text/html Concerns with sinus congestion x 2 days, has eye pressure, heavy chest. Concerns with possible bronchitis. He would like to take a steroid shot. Pilar Barrett, DOG LICENSE OFFICER SUPERVISOR [address], [place], [address], [employer] [facility] 03/03/2025 12:03:18
[2025-06-04 15:51] VITALS: BP 129/75; PULSE 88; RESP 18; TEMP 36.7; O2SAT 98
== END 2025-06-04 15:58 | disposition home or self-care (01) ==
PROVIDERS: Emergency Provider Nurse Practitioner Family
DX: L23.7 Allergic contact dermatitis due to plants, except food (principal); F17.200 Nicotine dependence, unspecified, uncomplicated; F12.90 Cannabis use, unspecified, uncomplicated; L40.50 Arthropathic psoriasis, unspecified; K20.0 Eosinophilic esophagitis; K21.9 Gastro-esophageal reflux disease without esophagitis
CPT/HCPCS: 99213; G0463

== ENCOUNTER 2025-08-14 18:27 | Emergency (ER) | payer OTHER, SELFPAY ==
--- OUTSIDE RECORDS SUMMARY | 2016-03-17 19:00 | XMS_ITS | Continuity of Care Document ---
Author Organization [facility] Address [address] [place] [address] Phone Care Team Providers Care Chief Cook Name Role Phone Laurent Lee MD Unavailable Unavailable Advance Directives Directive Yes / No Effective Date File Name No Information Encounters Encounter Description Practice Location Reason(s) For Visit Diagnoses Date Provider Providers Copied on Encounter [facility], [address], [place], [place], [id number], tel:[phone] [facility] No Information Jesus Mancilla. [address] [place] [address], [address], [id number], . tel:[phone] Referring Provider: Laurent Lee, [address] [place] [address], [id number]. tel:[phone] Family History Family Member Type Diagnosis Age At Onset No Information Payers Payer name Insurance type Covered constitution party ID Authoriza tion(s) No Information Social History Type Description Quantity Date Captured Comments Sex Male Smoking Status No Information Chief Complaint And Reason For Visit No Information Reason For Referral Reason For Referral No Information History Of Present Illness Encounter Date Complaint History Of Prese nt Illness No Information Functional Status Date Functional Assessmen t No Information Instructions Date Instruction Additional Infor mation No Information Assessments Type Assessment Date No Information Patient Care Teams Name Effective Dates (start - stop) Status Members No Information
--- OUTSIDE RECORDS SUMMARY | 2016-03-17 19:00 | XMS_ITS | Continuity of Care Document ---
Author Organization [facility] Address [address] [place] [address] Phone Care Team Providers Care Recycling Manager Name Role Phone Laurent Lee MD Unavailable Unavailable Advance Directives Directive Yes / No Effective Date File Name No Information Encounters Encounter Description Practice Location Reason(s) For Visit Diagnoses Date Provider Providers Copied on Encounter [facility], [address], [place], [place], [id number], tel:[phone] [facility] No Information Jesus Mancilla. [address] [place] [address], [address], [id number], . tel:[phone] Referring Provider: Laurent Lee, [address] [place] [address], [id number]. tel:[phone] Family History Family Member Type Diagnosis Age At Onset No Information Payers Payer name Insurance type Covered libertarian ID Authoriza tion(s) No Information Social History [...]
--- OUTSIDE RECORDS SUMMARY | 2025-08-14 18:29 | XMS_ITS | Clinical Summary ---
Author Organization [facility] Address [address] [place] [address] Care Team Providers Care Experimental Preflight Mechanic Name Role Phone Binh Lopez MD Primary Care Provider [phone] Source Comments [facility],non-owned Affiliates and Associated Physician Practices is amultiple site organization consisting of ambulatory clinics and hospital sitesin [place], [place], [place] and [place]. This disclosure is being madepursuant to the Care Everywhere program and may not contain all information available regarding this patient. 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
--- OUTSIDE RECORDS SUMMARY | 2025-08-14 18:29 | XMS_ITS | Clinical Summary ---
Author Organization [facility] Address [address] [place] [address] Care Team Providers Care Linux Security Administrator Name Role Phone Pilar Barrett NP Primary Care Provider [phone] Allergies Active Allergy Reactions Criticality Noted Date [...] Comments Blood Pressure 112/80 10/14/2024 1:54 PM CLINICAL NURSING COORDINATOR Pulse 92 10/14/2024 1:54 PM CLINICAL NURSING COORDINATOR Temperature 37.1 C (98.7 F) 10/14/2024 1:54 PM CLINICAL NURSING COORDINATOR Respiratory Rate 18 10/14/2024 1:54 PM CLINICAL NURSING COORDINATOR Oxygen Saturation 93% 10/14/2024 1:54 PM CLINICAL NURSING COORDINATOR Inhaled Oxygen Concentration - - Weight 117.9 kg (260 lb) 10/14/2024 1:54 PM CLINICAL NURSING COORDINATOR Height 188 cm (6' 2) 10/14/2024 1:54 PM CLINICAL NURSING COORDINATOR Body Mass Index 33.38 10/14/2024 1:54 PM CLINICAL NURSING COORDINATOR Plan of Treatment Health Maintenance Due Date Last Done Comments Annual Physical 1985 Hepatitis B Vaccines (3 of 3 - Hep B Twinrix 3-dose series) 07/19/2008 02/17/2008, 01/17/2008 HPV Vaccines (1 - 3-dose SCDM series) 2009 PHQ-2 (Physician [place]) 11/09/2024 10/14/2024 COVID-19 Vaccine (3 - season) 2025 01/10/2022, 12/20/2021 Influenza Adult (#1) 2025 08/24/2024, 10/10/2020, 08/17/2019, Additional history exists DTaP, Tdap and Td Vaccines (3 - Td or Tdap) 06/26/2027 06/26/2017, [...] 49 Years) Aged Out No longer eligible based on patient's age to complete this topic RSV Immunizations Under 20 Months Aged Out No longer eligible based on patient's age to complete this topic Insurance Advance Directives Documents on File Type Date Recorded Patient Mastic Sprayer Expl anation Advance Directives and Living Will 02/18/2016 12:00 AM ADVANCED DIRECTIVES Care Teams Linux Security Administrator Relationship Specialty Start Date End Date Pilar Barrett NP [address] [place] [address] PCP - General NURSE PRACTITIONER 06/13/24
--- OUTSIDE RECORDS SUMMARY | 2025-08-14 18:29 | XMS_ITS | Clinical Summary ---
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 Gender Identity Not on file Sexual Orientation [...] Final Result Performing Organization Address City/State/ZIP Co ms Phone Number [facility] [address] [place] [address] from Last 3 Months or Most Recently Relevant to Health Maintenance Insurance [facility]/PPO Address: [place] [id number] [facility] H[facility]/PPO Address: [place] [id number] Care Teams Commercial Lending Assistant Relationship Specialty Start Date End Date No, Physician PCP - General 03/27/20
--- NOTE | 2025-08-14 18:30 | ED_ITS ---
HPI - Asthma General Chief Complaint: Upper Respiratory Infection Stated Complaint: Asthma Time Seen by Provider: 08/14/25 18:30 Source: patient Mode of arrival: ambulatory Limitations: no limitations History of Present Illness HPI Narrative: Bismark is a 45-year-old male patient presenting to the clinic today with complaints of asthma flare. He reports over the last 9 days he has been using his albuterol inhaler excessively, has productive cough with times white phlegm and at other times green phlegm and chest tightness. Denies any known fevers, chills, body aches. Oxygen saturations 96% on room air. Patient is able speak in full sentences without having to take breaths in between. States normally when he gets like this they gave him a shot of steroids, oral steroids, and put him on some antibiotics. Related Data Home Medications ?Medication ?Instructions ?Recorded ?Confirmed ?Last Taken ?Type albuterol 90 mcg-budesonide 80 inh inhalation 08/01/24 08/01/24 Unknown History mcg/actuation HFA aerosol inhaler (Airsupra) apremilast 30 mg tablet (Otezla) mg PO 08/01/24 Unkno wn History atorvastatin 20 mg tablet mg 08/01/24 Unknown History fluconazole 200 mg tablet mg 08/14/25 Unknown History Allergies Allergy/AdvReac Type Severity Reaction Status Date / Time No Known Allergies Allergy Verified 08/14/25 18:33 Review of Systems Review of Systems: Pertinent positives per HPI. Patient denies any fever, chills, rash, headache, visual changes, dizziness, palpitations, nausea, vomiting, diarrhea, constipation, abdominal pain, or any urinary issues. [facility] Past Medical History Medical History Psoriatic arthritis Eosinophilic esophagitis GERD overlap. GERD (gastroesophageal reflux disease) TAYLOR (obstructive sleep apnea) Social History Social History Smoking status: Current some day smoker Alcohol intake: never Substance use: current Substance use type: marijuana Living arrangements: with family Occupation/Education: occupation Gender identity (if verbalized by the patient): Male Sexual Orientation (if Verbalized by the Patient): Straight or Heterosexual Spiritual care concerns: No Comments At the time of my signature, I reviewed and agree with the nursing past medical, surgical, social, and family history. There is no relevant family history pertinent to the patient complaint. Exam Narrative: General: Well-developed, obese, in no apparent distress Head: Normocephalic, atraumatic Eyes: Pupils equally round and reactive to light bilaterally, EOM intact, sclera and conjunctive clear, no discharge, lids normal Ears: TMs intact and clear, ear canals clear, no drainage, grossly hearing normal. Nose: Nares patent, no discharge, no inflammation, no sinus tenderness. Mouth: Oral pharynx without lesions or masses, good dentition, MMM. Neck: Supple, trachea midline, no enlargement of anterior or posterior cervical nodes, no thyroid masses or goiter palpable. Cardio: Regular rate and rhythm, s1 and s2 normal, no murmur appreciated. Resp: Diminished in the bases otherwise clear, no rhonchi, rales, wheezing or rubs Course Course Emergency Course: Portions of this record may have been created with voice recognition software. Level of Care: Express Care Visit Vital Signs Vital signs: Vital Signs Temperature 36.6 C 08/14/25 18:33 Pulse Rate 105 H 08/14/25 18:33 Respiratory Rate 18 08/14/25 18:33 Blood Pressure 128/76 08/14/25 18:33 Pulse Oximetry 96 08/14/25 18:33 Oxygen Delivery Room Air 08/14/25 18:33 Temperature 36.6 C 08/14/25 18:33 Pulse Rate 105 H 08/14/25 18:33 Respiratory Rate 18 08/14/25 18:33 Blood Pressure 128/76 08/14/25 18:33 Pulse Oximetry 96 08/14/25 18:33 Oxygen Delivery Room Air 08/14/25 18:33 Vital signs reviewed MDM - Asthma MDM Narrative Medical decision making narrative: At the time of visit patient is resting comfortably on the exam table. Patient appears to be nontoxic. Complaints of asthma flare. He reports over the last 9 days he has been using his albuterol inhaler excessively, has productive cough with times white phlegm and at other times green phlegm and chest tightness. Denies any known fevers, chills, body aches. Oxygen saturations 96% on room air. Patient is able speak in full sentences without having to take breaths in between. States normally when he gets like this they gave him a shot of steroids, oral steroids, and put him on some antibiotics. On exam patient has no nasal discharge, TMs intact and clear, oral pharynx normal, lung sounds diminished in the bases, heart rates regular rate and rhythm Medications: Solu-Medrol 125 mg IM given in the clinic today Plan: I suspect patient has a asthma exacerbation. Prescription for 10 day taper dose of prednisone and doxycycline was sent to the pharmacy. Supportive measures were discussed with the patient and they voiced understanding discharge instructions and agrees to treatment plan. Return precautions reviewed Differential Diagnosis Differential diagnosis: Likely Acute exacerbation, Status asthmaticus, Acute asthmatic bronchitis, Pneumonia and COPD exacerbation Discharge Plan Discharge Clinical Impression: Asthma exacerbation Qualifiers: Asthma severity: unspecified severity Asthma persistence: unspecified Qualified Code(s): J45.901 - Unspecified asthma with (acute) exacerbation Patient Disposition: Home Condition: Stable Instructions: Antibiotic Form, Asthma (ED) Additional Instructions: Solu-Medrol 125 mg IM given in the clinic today Take prescription medications only as prescribed-10 day taper dose of prednisone and doxycycline Increase fluids and stay well hydrated May take Tylenol or motrin as directed on bottle for pain/fever May use Flonase 1 spray in each nare daily May take OTC antihistamines such as Zyrtec or Claritin daily as directed on bottle May apply Vicks vapor rub to chest to open sinuses Sinus rinses for congestion Cepacol spray, cough drops, throat lozenges, warm tea with honey/lemon, gargle salt water to soothe throat BRAT diet for diarrhea Clear liquids x 24 hours then advance as tolerated for nausea/vomiting Go to the ED if you develop a worsening in your condition- high fever not controlled by Tylenol or Motrin, dehydration, weakness, lethargy, shortness of breath, or chest pain. Follow up with your PCP in 3-5 days if symptoms persist. Patient Language: Frisian Prescriptions: New doxycycline monohydrate 100 mg capsule 100 mg PO BID 7 Days Qty: 14 0RF prednisone 10 mg tablet 10 mg PO DAILY Qty: 30 0RF Rx Instructions: 60mg po daily on day 1, 40mg po daily on days 2-4, 30mg po daily on days 5-6, 20mg po daily on days 7-8, 10mg po daily on days 9-10 No Action Airsupra 90-80 mcg/actuation HFA aerosol inhaler INHALATION atorvastatin 20 mg tablet Otezla 30 mg tablet PO fluconazole 200 mg tablet albuterol sulfate 2.5 mg /3 mL (0.083 %) solution for nebulization 2.5 mg inhalation Q4H PRN (Reason: shortness of breath or wheezing) Qty: 90 0RF Follow-up/Referrals: Arnold,Pilar Ochoa, TRAINING AND DEVELOPMENT SPECIALIST [Primary Care Provider, Unknown] Time of Disposition: 18:48 Quality NIHSS Nursing Documentation ED NIHSS nursing documentation: reviewed/agree
--- OUTSIDE RECORDS SUMMARY | 2025-08-14 18:30 | XMS_ITS | Data Portability ---
Author Organization [facility], Main Office Address [address] [place] [address] Care Team Providers Care Home Care Liaison Name Role Phone ZAIRA MEYERS Primary Care Provider [phone] ZAIRA MEYERS Referring Provider [phone] Assessment No assessment recorded. Plan of Treatment Reminders Order Date Submit Date Provider Last Modified By Organization Details Last Modified Time Details Appointments None recorded. Lab rapid flu (A+B) [address], [address], 5 17:13:10 rapid strep group A, throat [address], [address], 4 10:34:52 Referral None recorded. Procedures None recorded. Surgeries None recorded. Imaging XR, chest, 2 view 2024 025 [facility] New Fax # As Of 02/29/24), [address] [place], [address], 5 11:02:09 electrocard iogram, routine ECG, 12 leads min 2024 025 [facility] New Fax # As Of 02/29/24), [address] [place], [address], 5 05:07:55 Medication Orders Zithromax Z-Buck 250 mg tablet 2024 025 [facility] #09661, [address] [place] [address], [id number], 5 11:01:14 Medrol (Buck) 4 mg tablets in a dose pack 2024 025 [facility] #02519, [address] [place] [address], [id number], 5 11:01:18 triamcinolo ne acetonide 40 mg/mL suspension for injection 2024 025 [email or web address] Not available 11:16:45 amoxicillin 875 mg-potassiu m clavulanate 125 mg tablet 2024 025 [facility]06240, [address] [place] [address], [id number], 5 16:21:52 Airsupra 90 mcg-80 mcg/actuati on HFA aerosol inhaler 2024 025 [facility] #6926, [address], [address], 5 16:39:48 Symbicort 160 mcg-4.5 mcg/actuati on HFA aerosol inhaler 2024 025 [facility] #6926, [address] [place] [address], [address], 5 16:39:47 amoxicillin 875 mg-potassiu m clavulanate 125 mg tablet 2023 024 [email or web address] #67137, [address] [place] [address], [id number], 5 16:21:52 Airsupra 90 mcg-80 mcg/actuati on HFA aerosol inhaler 2023 024 [facility] #81598, [address] [place], [id number], 4 16:51:17 triamcinolo ne acetonide 40 mg/mL suspension for injection 2023 024 Not available 5 16:21:58 nystatin 100,000 unit/mL oral suspension 2023 024 [facility] #23261, [address], [place], [id number], 4 16:38:19 Patient TargetsNo targets recorded. Patient InstructionsNo instructions recorded. Reason for Referral None Reported. Results Created Date Observation Date Name Description Value Unit Range Abnormal Flag Note LastModifiedBy Organization Detail LastModifiedTime 09/02/20 24 09/02/2024 rapid strep group A, throa t STREP A negati ve Not Available [address], [address], 09/02/2024 10:03:20 12/15/19 25 12/15/2024 rapid flu (A+B) Flu A negati ve Not Available [address], [address], 12/15/2024 16:53:44 12/15/19 25 12/15/2024 rapid flu (A+B) Flu B negati ve Not Available [address], [address], 12/15/2024 16:53:44 10/11/20 24 10/10/2024 XR, chest , 2 view No observ ation record ed. [facility] [address], [place], [address], 10/11/2024 10:27:40 11/18/19 25 11/18/2024 CT, abdom en + pelvi s, w/ contr ast No observ ation record ed. [address], [place], [address], 11/21/2024 09:14:21 01/03/20 25 01/03/2025 elect rocar diogr am, routi ne ECG, 12 leads min No observ ation record ed. [facility] - Radiology [address] [facility], [place], [address], 01/04/2025 09:09:25 01/03/20 25 01/03/2025 elect rocar diogr am, routi ne ECG, 12 leads min No observ ation record ed. [address] - Radiology New Fax # As Of 02/29/24) [address] [place], [address], 01/04/2025 11:01:22 01/04/20 25 01/03/2025 XR, chest , 2 view No observ ation record ed. [address] Radiology New Fax # As Of 02/29/24) [address] [place] [address], [address], 01/04/2025 11:02:09 Result Notes None recorded. Problems Name Problem SNOMED Code Status Onset Date Resolution Date Notes Provider Name and Address Organization Details Recorded Time Microscop ic hematuria 011878113 Active Not Available [facility] 3 17:29:44 Spinal stenosis of lumbar region 00859790 Active 2016 Not Available [facility] 3 17:29:44 Renal mass 966284047 Active 2016 Not Available [facility] 3 17:29:45 Sleep apnea 30175961 Active 2016 Not Available [facility] 3 17:29:45 Obese 950995635 Active 2016 Not Available [facility] 3 17:29:45 Hyperlipi demia 59277733 Active 2016 Not Available [facility] 3 17:29:45 Hyperglyc emia 20273690 Active 2016 Not Available [facility] 3 17:29:45 Sinusitis 30071606 Active 2016 Not Available [facility] 3 17:29:45 Persisten t cough 699980600 Active 2017 Not Available [facility] 3 17:29:45 Pruritus ani 02575272 Active 2017 Not Available [facility] 3 17:29:45 Allergic rhinitis 65952721 Completed 201703/23/2024 VICKY Arita [address], [place], [address] , [employer] [facility] [employer] [facility] 4 17:24:12 Asthma 262849284 Active 2018 Not Available [facility] 3 17:29:44 Gastroeso phageal reflux disease 311572335 Active 2019 Not Available [facility] 3 17:29:45 Unintenti onal weight loss 568145378 Active 2019 Not Available [facility] 3 17:29:45 Celluliti s of right knee 13891854521 803941 Active 2022 Aung Jones MD [address], [address], [place], [address] , [employer] [facility] [employer] [facility] 3 17:01:34 Pain of right knee joint 63993820020 4100 Active 2022 Aung Jones MD [address], [place], [address] , [employer] [facility] [employer] [facility] 3 17:21:39 Obesity 670044550 Active 2022 Aung Jones MD [address], [place], [address] , [place] [facility] 3 17:21:46 Psoriasis 7887400 Active 2022 Aung Jones MD [address], [address], [place], [address] , [place] [facility] 3 17:21:46 Acute sinusitis 57590808 Completed 202203/23/2024 VICKY Arita [address], [address], [place], [address] , [place] [facility] 4 17:24:02 Chronic low back pain 610442389 Active 2022 Zaira Meyers NP [address], [address], [place], [address] , [place] [facility] 3 17:47:23 Psoriatic arthritis 004493431 Active 2023 VICKY Arita [address], [address], [place], [address] , [place] [facility] 4 16:43:27 Mucus in stool 709043677 Active 2023 VICKY Arita [address], [address], [place], [address] , [place] [facility] 4 16:51:17 Celiac disease 734368522 Active 2023 VICKY Arita [address], [address], [place], [address] , [place] [facility] 4 16:51:57 Acute tonsillit is 98485547 Active 2023 VICKY Arita [address], [address], [place], [address] , [place] [facility] 4 17:07:22 Depressiv e disorder 64921898 Active 2023 VICKY Arita [address], [address], [place], [address] , [place] [facility] 4 17:22:29 Prediabet es 521017541 Active 2023 VICKY Arita [address], [address], [place], [address] , [employer] [facility] 4 16:19:49 Nausea and vomiting 83068261 Active 2023 VICKY Arita [address], [address], [place], [address] , [facility] 4 16:40:03 Allergic contact dermatiti s 658657859 Active 2023 VICKY Arita [address], [address], [place], [address] , [employer] [facility] [place] [facility] 4 09:50:57 Epigastri c pain 04504440 Active [address], [place], [address] , [employer] [facility] [employer] [facility] 4 10:06:11 Acute urticaria 253168179 Active [address], [place], [address] , [employer] [facility] [place] [facility] 4 16:55:59 Wheezing 29087636 Active [address], [place], [address] , [facility] 4 16:28:57 Sore throat 174500566 Active 2023 VICKY Arita [address], [address], [place], [address] , [facility] 4 10:03:16 Candidias is of mouth 43369701 Active [address], [place], [address] , [employer] 5 17:10:36 Acute bacterial sinusitis 70628262 Active 2023 VICKY Arita [address] [facility] [place] [address], [place], [address] , [employer] [facility] [employer] 4 16:50:55 Cough 93262671 Active 2024 KATHY AritaP [address] [facility] [place] [address], [place], [address] , [employer] 5 16:53:39 Chest pain 27290510 Active 2024 KATHY AritaP [address] [facility], [place] [address], [place], [address] , [employer] [facility] [employer] 5 16:28:16 Acute bronchiti s 79796245 Active 2024 VICKY Arita [address] [facility], [place] [address], [place], [address] , [employer] 5 11:00:19 Notes:Some problems listed i n Documents: #[id number], #[id number], #[id number], #[id number], #[id number], #[id number] could not be added to this patient's chart. Please review these documents and add these problems to the patient's chart manually as needed. Problem Notes None recorded. Medical Equipment None Reported. Allergies Allergen ID Allergen Name Allergen Category Reaction Reaction Severity Criticality Documentation Date Start Date Code Code System Note Provider Name and Address Organization Details Recorded Time 31833 Substance with sulfonami de structure and antibacte rial mechanism of action (substanc e) medicatio n Not available Not available Not available 01/07/2023 62242 8003 SNOMED Zaira Davenport RN [facility], [employer] [facility] [employer] 4 16:02:18 81617 Product containin g penicilli n (product) medicatio n Not available Not available Not available 01/07/2023 87855 8001 SNOMED Marta Jones MD [address] [facility], [facility] [address], [place], [address], [facility] 3 17:02:45 [address] [facility]cin medicatio n tachycard ia moderate Not available 01/07/20232016 52353 RxNorm Zaira Davenport RN [facility], [facility] [facility] 4 16:02:15 Medications Name Sig Start Date [...] Not Available Not Available Not Available fluconazole 100 mg tablet Take 1 tablet every other day by oral route as directed for 7 days. 06/29 completed Not Available Not Available Not Available [...] Available Not Available prednisone 10 mg tablet TAKE 4 TABLETS BY MOUTH DAILY FOR 5 DAYS THEN TAKE 2 TABLETS BY MOUTH DAILY FOR 5 DAYS THEN TAKE 1 TABLET BY MOUTH [...] MOUTH EVERY DAY DIRECTED FOR 7 DAYS active Not Available Not Available No t Available meloxicam 15 mg tablet TAKE 1 [...] No t Available Otezla 30 mg tablet TAKE 1 TABLET BY MOUTH TWICE DAILY 2024 active Not Available Not Available Not Avai lable True Metrix Glucose Test Strip 06/25 completed [...] Updated DateTime 5 187.96 cm 32.5 kg/m2 567943. 32 g 98 [degF] 24 /min 1 101 /min 97 % 97 % 156/102 mm[Hg] Zaira Davenport RN [place] [employer] 5 16:13:15 Date Recorded Body height Body mass index (BMI) Body weight Body temperature Heart rate Respiratory rate Oxygen saturation Oxygen saturation in Arterial blood by Pulse oximetry Pain severity - 0-10 verbal numeric rating [Score] - Reported Systolic And Diastolic Provider Name and Address Organization Details Last Updated DateTime 5 187.96 cm 32.5 kg/m2 585743. 92 g 97.8 [degF] 90 /min 20 /min 97 % 97 % 2 120/60 mm[Hg] Zaira Davenport RN [facility] 5 16:21:35 Date Recorded Body height Body mass index (BMI) Body weight Body temperature Heart rate Respiratory rate Oxygen saturation Oxygen saturation in Arterial blood by Pulse oximetry Pain severity - 0-10 verbal numeric rating [Score] - Reported Systolic And Diastolic Provider Name and Address Organization Details Last Updated DateTime 5 187.96 cm 32.2 kg/m2 299924. 24 g 97.3 [degF] 79 /min 20 /min 98 % 98 % 0 170/100 mm[Hg] Zaira Davenport RN [facility] 5 10:56:11 Date Recorded Body height Body mass index (BMI) Body weight Body temperature Heart rate Respiratory rate Oxygen saturation Oxygen saturation in Arterial blood by Pulse oximetry Pain severity - 0-10 verbal numeric rating [Score] - Reported Systolic And Diastolic Provider Name and Address Organization Details Last Updated DateTime 4 187.96 cm 34.3 kg/m2 622873. 91 g 97.2 [degF] 100 /min 20 /min 97 % 97 % 1 140/80 mm[Hg] Zaira Davenport RN [facility] 4 10:01:01 Date Recorded Body height Body mass index (BMI) Body weight Body temperature Heart rate Respiratory rate Oxygen saturation Oxygen saturation in Arterial blood by Pulse oximetry Pain severity - 0-10 verbal numeric rating [Score] - Reported Systolic And Diastolic Provider Name and Address Organization Details Last Updated DateTime 4 187.96 cm 33.1 kg/m2 918483. 83 g 97.7 [degF] 98 /min 20 /min 97 % 97 % 5 136/94 mm[Hg] Zaira Davenport RN [facility] 4 16:42:00 Social History Question Answer Notes LastModified by Organizat ion Details LastModified Time Tobacco Smoking Status Never Smoker Zaira Davenport RN [facility], [facility] 09/01/2023 17:23:45 Do You Have An Advance [...] Do You Have A Medical Power Of Sensitized Paper Tester? No Information not available 09/01/2023 What Was The Date Of Your Most Recent Tobacco Screening? 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 Moderate Information not available 09/01/2023 Mental Status Question Answer Note LastModified by Organization D etails LastModified Time Do you feel stressed (tense, restless, nervous, or anxious, or unable to sleep at night)? [id number] Information not available 09/01/2023 Family History Nothing Reported. Medical History Condition Response ARTHRITIS Y USE OF BLOOD THINNERS Y OTHER # 1 Y ASTHMA Y GOUT N BACK / NECK PROBLEMS Y GI PROBLEMS Y NEUROPATHY Y Immunizations Vaccine Type Date Status Note Provider Nam e and Address Organization Details Recorded Time Tdap 06/25/2017 completed Not Available [facility] 01/07/2023 17:30:52 Influenza, split virus, quadrivalent, PF 10/10/2020 completed Not Available [facility] 3 17:30:52 Influenza, split virus, quadrivalent, PF 08/11/2018 completed Not Available [facility] 3 17:30:52 Influenza, split virus, quadrivalent, PF 08/25/2017 completed Not Available [facility] 3 17:30:52 Tdap 06/26/2017 completed Not Available [facility] 01/07/2023 17:30:52 Influenza, split virus, quadrivalent, PF 08/17/2019 completed Not Available [facility] 3 17:30:52 Influenza, split virus, trivalent, PF 08/24/2024 completed Zaira Davenport RN [facility], [place] [facility] [employer] [facility] 08/24/2024 16:51:54 Past Encounters Encounter ID Performer Location Encounter Start Date Encounter Closed Date Diagnosis/Indication Diagnosis SNOMED-CT Code Diagnosis ICD10 Code Diagnosis IMO Codes Diagnosis Note [id number] Aung Jones MD [address] [address] 11/04/2022 00:00:00 11/04/2022 12:52:30 [id number] Aung Jones MD [address] [address] 08/04/2023 16:34:08 08/04/2023 17:26:27 Seen in emergency clinic 815885936 Z76.89 Cellulitis of right knee 2902301521 4229441 L03.115 Pain of ri ght knee joint 2863981178 72518 M25.561 Obesity 961511697 E66.9 [id number] Aung Jones MD [address] [address] 08/27/2023 17:08:06 08/27/2023 17:37:09 Cellulitis of right knee 7994277110 3891259 L03.115 Pain of ri ght knee joint 0454624718 24296 M25.561 Obesity 970347046 E66.9 Psoriasis 2781370 L40.9 [id number] Zaira Meyers NP [address] [place] [address] 09/01/2023 17:11:58 09/01/2023 18:15:46 Acute sinusitis 58666652 J01.90 Cephalexin 500 mg po tid for 7 days. Anemia screening 9294453 07 Z13.0 Diabetes m ellitus screening 831922337 Z13.1 Thyroid di sorder screening 500689573 Z13.29 Hyperlipid emia screening 357028071 Z13.220 Cellulitis of right knee 6998400646 8773539 L03.115 finish clindamyci n. Kelfex sent. Pt states pcn no allergy and likely not sulfa either- was very young when had it last. Unsure reaction. Augmentin, clindamyci n, doxy, cefazolin inj, clarithrom ycin are meds hes been on. Referring to ID. Chronic low back pain 27 2980377 M54.50 MJ prn. Adult heal th examination 588563389 Z00.00 Encouraged well balanced meals, active lifestyle, and routine vision and dental appts. [id number] Zaira Meyers NP [address] [address] 11/17/2023 15:48:43 11/17/2023 18:25:22 Pain of right knee joint 4589349929 85209 M25.561 medrol dose buck, ortho referral. Cellulitis of right knee 0395333672 9794384 L03.115 Right knee flared again- will give bactrim for a flare if needed. Start if red, worsening fluid retention, or increased warmth to touch. notify office of such developing symptoms. [id number] Laurent Rodríguez MD [facility] [address] [place] [address] 01/08/2024 09:16:47 01/08/2024 09:56:27 Pain of right knee joint 8107597554 12409 M25.485 [id number] Aung Jones MD [address] [address] 03/23/2024 16:06:29 03/23/2024 17:28:52 Asthma 798754762 J45.909 Psoriatic arthritis 1563 62510 L40.50 Mucus in stool 255104355 R19.5 Hyperglycemia 74034050 R 73.9 Microscopic hematuria 19 3056591 R31.29 Hyperlipidemia 52931936 E78.5 Acute tonsillitis 147618 08 J03.90 Depressive disorder 3548 9007 F32.A [id number] Aung Jones MD [address] [address] 05/02/2024 15:57:47 05/02/2024 16:51:42 Psoriatic arthritis 978667452 L40.50 Asthma 681409158 J45.90 9 [id number] Aung Jones MD [address] [address] 07/04/2024 09:36:32 07/04/2024 10:08:09 Asthma 546680328 J45.909 Allergic c ontact dermatitis 160941932 L23.9 Epigastric pain 54857625 R10.13 Xifaxan samples provided [id number] Aung Jones MD [address] [address] 07/12/2024 16:35:32 07/12/2024 17:10:06 Allergic contact dermatitis 499990939 L23.9 [id number] Aung Jones MD [address] [address] 07/27/2024 16:26:47 07/27/2024 17:17:27 Allergic contact dermatitis 294461117 L23.9 Bite of insect 984107045 W57.XXXA [id number] Aung Jones MD [address] [address] 08/24/2024 16:12:11 08/24/2024 16:45:26 Asthma 227411555 J45.909 Wheezing 75517316 R06.2 Administra tion of influenza vaccine 46237169 Z23 [id number] Aung Jones MD [address] [address] 09/02/2024 09:49:59 09/02/2024 11:10:04 Sore throat 862213710 J02.9 Candidiasis of mouth 797 93700 B37.0 [id number] Aung Jones MD [address] [address] 10/27/2024 16:23:38 10/27/2024 16:55:03 Asthma 847833182 J45.909 Has been requiring rescue inhaler multiple times daily, does not want to take daily maintenanc e Acute bact erial sinusitis 06988182 J01.90 [id number] Aung Jones MD [address] [address] 12/15/2024 15:51:49 12/16/2024 08:38:01 Asthma 764471864 J45.909 Has been requiring rescue inhaler multiple times daily, does not want to take daily maintenanc e Acute bact erial sinusitis 67379479 J01.90 Cough 35479319 R05.9 [id number] Aung Jones MD [address] [address] 01/03/2025 16:11:03 01/03/2025 16:46:54 Chest pain 07131418 R07.9 Patient advised to seek care in the ER, pt does not want toWill go for XR and EKG and FU in 1 weekWill seek care in ER for worsening pain, SOB, Tachycardi a. [id number] VICKY Arita [address] [address] 03/03/2025 10:38:01 03/03/2025 12:05:11 Acute bronchitis 45404949 J20.9 recurrent, pt requesting steroid injection Acute bact erial sinusitis 78698841 J01.90 Advised that abx should be help until >7 days of illness Health Concerns Section Related Observation LastModified by Organization Detai ls LastModified Time None Recorded Concern Status LastModified by Organization Details LastModified Time None Recorded Advance Directives Directive N: Payers Insurance Date Sequence Insurance Name Policy Number Policy Alston Covered Member ID Alston Member ID Guarantor Name 04/25/2025 1 [facility] Wyatt Carrasco [id number] Wyatt Carrasco 08/04/2023 1 *SELF PAY* Rene [...] on steroids and uses albuterol VICKY Arita [employer], [place], [address], [employer] 09/02/2024 10:14:10 10/27/2024 text/html Wyatt Carrasco is a 44 year old male patient here today with multiple concerns He states he has anxiety about his BP. Reassured that his BP is normal. He has had multiple XRs and consults with GI and Rheumatology He has concerns with sinus congestion, cough, feverish x 2 weeks. VICKY Arita [employer], [address], [place], [address], [employer] 10/27/2024 16:53:57 12/15/2024 text/html Wyatt Carrasco is a 44 year old male patient here today for continuous Asthma issues States he is going through albuterol before he is able to get refills. Is not taking daily maintenance Notes productive cough x 3 weeks. States worse at night time VICKY Arita [employer], [address], [place], [address], [employer] 12/15/2024 17:26:29 01/03/2025 text/html Wyatt Carrasco is [...] may be anxiety as well VICKY Arita [address], [place], [address], [employer] [facility] 01/03/2025 16:37:41 03/03/2025 text/html Concerns with sinus congestion x 2 days, has eye pressure, heavy chest. Concerns with possible bronchitis. He would like to take a steroid shot. VICKY Arita [address], [place], [address], [employer] 03/03/2025 12:03:18
--- OUTSIDE RECORDS SUMMARY | 2025-08-14 18:30 | XMS_ITS | Clinical Summary ---
Author Organization [facility] Address [address] [place] [address] Phone Care Team Providers Care Acquisitions Librarian Name Role Phone Zaira Ghotra APRN, ALEX [...] Comments Hepatitis C Virus (HCV) Screening 1982 Pneumococcal Immunization Combined (1 of 2 - PCV) 2001 Hepatitis B Immunization (3 of 3 - Hep B Twinrix 3-dose series) 07/19/2008 02/17/2008, 01/17/2008 Human Papillomavirus (HPV) Immunization (1 - 3-dose SCDM series) 2009 Influenza Immunization (#1) 07/10/202507/2019, 08/11/2018, 08/25/2017, Additional history exists SARS-COV-2 Immunization ( - season) 2025 Colonoscopy 08/09/2030 08/09/2020 Colorectal Cancer Screening 08/09/2030 [...] Health Maintenance Insurance MEDICAID [place] Care Teams Acquisitions Librarian Relationship Specialty Start Date End Date Zaira Ghotra APRN, CONTACT CLERK [address] [place] [address] PCP - General Certified Nurse Practitioner 05/10/20
[2025-08-14 18:33] VITALS: BP 128/76; PULSE 105; RESP 18; TEMP 36.6; O2SAT 96
== END 2025-08-14 19:03 | disposition home or self-care (01) ==
PROVIDERS: Emergency Provider Nurse Practitioner Family
DX: J45.901 Unspecified asthma with (acute) exacerbation (principal); F17.200 Nicotine dependence, unspecified, uncomplicated; F12.90 Cannabis use, unspecified, uncomplicated; K21.9 Gastro-esophageal reflux disease without esophagitis; K20.0 Eosinophilic esophagitis; L40.50 Arthropathic psoriasis, unspecified
CPT/HCPCS: 96372; 99213; G0463; J2919